=== PATIENT | female | born 1975 | race Two or more races ===

== ENCOUNTER 2020-08-20 15:36 | Outpatient (REF) | payer OTHER, SELFPAY ==
--- NOTE | ~2020-08-20 | MM_ITS ---
EXAMINATION: MM SCREENING DIGITAL BREAST TOMOSYNTHESIS, BILATERAL CLINICAL INFORMATION: Screening. Asymptomatic. The lifetime risk of breast cancer based on the Tyrer-Cuzick Model is 7%. COMPARISON: Mammography: 08/23/2018, 09/11/2016 TECHNIQUE: Digital mammography is performed in craniocaudal and mediolateral oblique views along with computer-aided detection (CAD). Digital breast tomosynthesis is performed in implant-displaced craniocaudal and implant-displaced mediolateral oblique views along with computer-aided detection (CAD). Synthesized 2D images are generated from the tomosynthesis. FINDINGS: The breasts are heterogeneously dense, which may obscure small masses (ACR BI-RADS breast composition Category c). There are no significant masses, abnormal calcifications, or other abnormalities. There are bilateral implants. Implant contours are similar to prior studies. There are no significant changes from prior exams. MM/MM tomosynthesis screen imp BI IMPRESSION: No mammographic evidence of malignancy. ASSESSMENT: BI-RADS 1: Negative RECOMMENDATION: Routine annual mammography screening. This patient's information was entered into a reminder system with a target due date for their next mammogram.
== END 2020-08-20 15:37 | disposition home or self-care (01) ==
LOC: HO.MAMMO 15:36
PROVIDERS: Visit Provider Internal Medicine
DX: Z12.31 Encounter for screening mammogram for malignant neoplasm of breast (principal)
CPT/HCPCS: 77063; 77067

== ENCOUNTER 2020-09-03 09:28 | Outpatient (REF) | payer OTHER, SELFPAY ==
[2020-09-04 15:32] LABS: C. trachomatis RNA TMA NOT DETECTED (NOT DETECTED); N. gonorrhoeae RNA TMA NOT DETECTED (NOT DETECTED)
== END 2020-09-03 09:29 | disposition home or self-care (01) ==
LOC: HO.LAB 09:28
PROVIDERS: PCP Internal Medicine; Visit Provider Advanced Practice Midwife
DX: Z01.419 Encounter for gynecological examination (general) (routine) without abnormal findings (principal); Z20.2 Contact with and (suspected) exposure to infections with a predominantly sexual mode of transmission
CPT/HCPCS: 36415; 87491; 87591

== ENCOUNTER 2021-07-23 21:51 | Emergency (ER) | payer OTHER, SELFPAY ==
[2021-07-23 21:52] VITALS: BP 147/66; PULSE 96; RESP 20; TEMP 36.1; O2SAT 100; BMI 26.4
--- NOTE | 2021-07-23 22:01 | ED_ITS ---
HPI - Allergic Reaction General Chief complaint: Allergic Reaction Stated complaint: allergic reaction Time Seen by Provider: 07/23/21 21:55 Source: patient Mode of arrival: ambulatory Limitations: no limitations History of Present Illness HPI narrative: 46-year-old female past medical history significant for anxiety presents to the emergency department with complaints of allergic reaction after using chapstick. Patient has been using the same chapstick for about 2 weeks, she has not had issues with this chapstick before. She reports a little bit of puffiness around the lips after using this chapstick. She also reports hives stopper and lower extremities and a few on her lower back. He tells me she has been having allergic reactions to multiple things lately, she is not sure exactly what she is allergic to, she was seen by an hydraulic punch press operator but she tells me that they did not do full panel testing on her. She does not report shortness of breath, difficulty breathing, she is controlling her secretions well. Upon arrival she appears nontoxic, no acute distress, speaking in full sentences. Denies chest pain, nausea, vomiting, abdominal pain, diarrhea, shortness of breath, fevers, chills. MD complaint: allergic reaction Onset (ago): hour(s) (1) Exposure: other (Chapstick) Symptoms: lip swelling Severity: mild Treatment prior to arrival: other (Loratadine and prednisone) Previous Allergic Reaction History: none Related Data Previous Rx's Medication Instructions Recorded alprazolam 0.25 mg tablet (Xanax) 0.25 mg PO DAILY PRN #6 tab 05/10/21 azithromycin 250 mg tablet See Rx Instructions PO .COMPLEX #6 05/17/21 tab diphenhydramine HCl 50 mg capsule 50 mg PO Q8H PRN #14 cap 07/23/21 epinephrine 0.3 mg/0.3 mL 0.3 mg (0.3 mL) IM Q4H PRN #2 ea 07/23/21 injection, auto-injector (EpiPen) prednisone 20 mg tablet 20 mg PO DAILY 5 Days #5 tab 07/23/21 Allergies Allergy/AdvReac Type Severity Reaction Status Date / Time polyethylene glycol 3350 Allergy Unknown HIVES Verified 05/17/21 10:12 [From MIRALAX] Review of Systems Review of Systems: Constitutional : No Weight loss, No Fever, No Chills, No Fatigue, No Malaise ENT/Mouth : No sore throat, No Rhinorrhea, + lip swelling Eyes: No Eye Pain, No Swelling, No Redness Cardiovascular : No Chest Pain, No SOB, No Dyspnea on Exertion, No Orthopnea, No Edema, No Palpitations Respiratory : No Cough, No Sputum, No Wheezing Gastrointestinal : No Nausea, No Vomiting, No Diarrhea, No Constipation, No abdominal Pain, No Hematochezia, No Melena Genitourinary : No Dysuria, No Urinary Frequency, No Hematuria, Musculoskeletal : No joint pain, No Myalgias, No Joint Swelling Skin : No Skin Lesions, + rash Neuro : No Weakness, No Numbness, No Dizziness, No Headache Psych : No Anxiety/Panic, No Depression All other systems reviewed and are negative Yes all other systems are reviewed and are negative [facility] Past Medical History Attestation statement: The following information was validated with the patient. Source: old records reviewed and nursing notes reviewed Medical History Anxiety Surgical History Hx of breast augmentation Hx of LASIK Hx of tonsillectomy Hx of wisdom tooth extraction Family History Family History Father Diabetes mellitus HTN (hypertension) High cholesterol Mother High cholesterol Maternal Grandmother Heart attack Paternal Grandmother Pneumonia Paternal Grandfather Diabetes mellitus Social History Social History Alcohol intake: current Alcohol intake frequency: holidays/special occasions only Patient Tobacco Use Status: Never used Tobacco Advance Directives: No Advance Directives Information Provided: Yes Gender identity: Female Physical Exam Vital Signs: Vital Signs: Last Vital Signs Temp 96.9 F 07/23/21 21:52 Pulse 96 07/23/21 21:52 Resp 20 07/23/21 21:52 BP 147/66 H 07/23/21 21:52 Pulse Ox 100 07/23/21 21:52 BMI result Body Mass Index 26.4 VSS Appearance: Alert.? Oriented X3.? No acute distress.? Patient speaking in full sentences, controlling secretions well, no acute distress. Head: Normocephalic, atraumatic, no step-offs or deformities Eyes: Pupils equal, round and reactive to light.? ENT: Pharynx normal.?Able to visualize posterior pharynx, no edema.+ mild swelling to upper and lower lips. Neck: Normal inspection.? Neck supple.? CVS: Normal heart rate and rhythm.? Pulses normal.? Respiratory: No respiratory distress.? Breath sounds normal.? Abdomen: Soft and nontender.? Skin: Skin warm and dry.? Normal skin color.? Normal skin turgor.?+ hives to upper and lower extremities and trunk. Extremities: 5/5 strength to bilateral upper and lower extremities Neuro: Oriented X 3.? No motor deficit.? No sensory deficit. Course Reevaluation(s) Reevaluation #1: Significant improvement after Benadryl administration. Patient's vital signs continued to be stable. Patient has no history of anaphylaxis. This appears to be a mild reaction. At this time I feel comfortable with discharge home. I will discharge her home with Benadryl, prednisone and and epi pen. I have educated her on proper use of EpiPen. She agrees and understands. I have answered all questions. I feel comfortable discharge home Time: 22:10 MDM - Allergic Reaction MDM Narrative Medical decision making narrative: 0 46 yo F pmhx anxiety presents to ED with mild lip swelling s/p using chapstick. Patient speaking in full sentences controlling secretions well. Vital signs are stable. Upon exam pharynx normal.?Able to visualize posterior pharynx, no edema. There is mild swelling to upper and lower lips. Patient controlling secretions well no acute distress. With stable vitals. Saturating 100% on room air. Plan at this time is to administer Benadryl.COVID test and monitor Medical Records Attestation: I reviewed the patient's medical records. Lab Data Attestation: I reviewed the patient's lab results. Critical Care Time Critical Care Time Critical Care Time: No Discharge Plan Discharge Clinical Impression: Allergic reaction Patient Disposition: Home, Self-Care Instructions: General Allergic Reaction (ED), Allergy Testing (ED) Additional Instructions: Take your medications as prescribed. If you were prescribed antibiotics today, it is important that you take your medication to their entirety, do not skip any doses, do not finish them early. Follow-up with your primary care provider this week. Please follow-up with an hydraulic punch press operator, I believe that you will likely require full panel allergy testing as this has been occurring frequently, unable to tell whether this is being caused by food, natural allergens or a specific product. I have sent an EpiPen for pharmacy and have instructed you on when you should use it, if you become short of breath or you feel like her throat is closing this is an appropriate time. If you use your EpiPen you must call 911 and be brought to the emergency department. Return to the emergency department with new or worsening symptoms. In case of emergency call 911 EROS: [facility] Office Address: [address] [place] [address] [address], [place], [address] Hope you feel better! Prescriptions: New diphenhydramine HCl 50 mg capsule 50 mg PO Q8H PRN (Reason: allergic reaction) Qty: 14 RF: 0 prednisone 20 mg tablet 20 mg PO DAILY 5 Days Qty: 5 RF: 0 epinephrine [EpiPen] 0.3 mg/0.3 mL auto-injector 0.3 mg IM Q4H PRN (Reason: anaphylaxis) Qty: 2 RF: 0 No Action alprazolam [Xanax] 0.25 mg tablet 0.25 mg PO DAILY PRN (Reason: anxiety) Qty: 6 RF: 0 azithromycin 250 mg tablet See Rx Instructions PO .COMPLEX Qty: 6 RF: 0 Referrals: Soila Ansari MD [Primary Care Provider] - 2 days Stand Alone Forms: Work/School Release
[2021-07-23] MEDS: diphenhydrAMINE HCL 25 MG TABLET 50 MG PO (22:30)
[2021-07-23 23:07] LABS: COVID-19 Test Negative (Negative)
== END 2021-07-23 23:12 | disposition home or self-care (01) ==
LOC: HO.ED 22:07
PROVIDERS: Physician Assistant; Emergency Provider Internal Medicine; PCP Internal Medicine
DX: L23.9 Allergic contact dermatitis, unspecified cause (principal); R22.0 Localized swelling, mass and lump, head; Z20.822 Contact with and (suspected) exposure to COVID-19; Z79.899 Other long term (current) drug therapy
CPT/HCPCS: 87635; 99283; Q0163

== ENCOUNTER 2021-09-09 08:39 | Outpatient (REF) | payer OTHER, SELFPAY ==
[2021-09-09 16:54] LABS: CT PCR NOT DETECTED (Not Detect.); NG PCR NOT DETECTED (Not Detect.)
[2021-09-11 21:07] LABS: HPV mRNA E6/E7 rflx Not Detected (Not Detected)
== END 2021-09-09 08:40 | disposition home or self-care (01) ==
LOC: HO.LAB 08:39
PROVIDERS: PCP Internal Medicine; Visit Provider Advanced Practice Midwife
DX: Z01.419 Encounter for gynecological examination (general) (routine) without abnormal findings (principal); Z11.51 Encounter for screening for human papillomavirus (HPV); Z20.2 Contact with and (suspected) exposure to infections with a predominantly sexual mode of transmission
CPT/HCPCS: 87491; 87591; 87624; 88142

== ENCOUNTER 2021-09-14 08:08 | Outpatient (REF) | payer OTHER, SELFPAY ==
--- NOTE | ~2021-09-14 | MM_ITS ---
EXAMINATION: MM SCREENING DIGITAL BREAST TOMOSYNTHESIS, BILATERAL CLINICAL INFORMATION: Screening. Asymptomatic. The lifetime risk of breast cancer based on the Tyrer-Cuzick Model is 7%. COMPARISON: Mammography: 08/20/2020, 08/23/2018, 3-17 TECHNIQUE: Digital mammography is performed in craniocaudal and mediolateral oblique views along with computer-aided detection (CAD). Digital breast tomosynthesis is performed in implant-displaced craniocaudal and implant-displaced mediolateral oblique views along with computer-aided detection (CAD). Synthesized 2D images are generated from the tomosynthesis. FINDINGS: The breasts are heterogeneously dense, which may obscure small masses (ACR BI-RADS breast composition Category c). There are no significant masses, abnormal calcifications, or other abnormalities. There is a fibronodular parenchymal pattern similar to prior studies. No developing density or architectural abnormality. The implant contours are smooth and similar to prior exams. There are no significant changes. MM/MM tomosynthesis screen imp BI IMPRESSION: No mammographic evidence of malignancy. ASSESSMENT: BI-RADS 1: Negative RECOMMENDATION: Routine annual mammography screening. This patient's information was entered into a reminder system with a target due date for their next mammogram.
== END 2021-09-14 08:09 | disposition home or self-care (01) ==
LOC: HO.MAMMO 08:08
PROVIDERS: PCP Internal Medicine; Visit Provider Internal Medicine
DX: Z12.31 Encounter for screening mammogram for malignant neoplasm of breast (principal)
CPT/HCPCS: 77063; 77067

== ENCOUNTER 2022-01-02 09:48 | Outpatient (REF) | payer OTHER, SELFPAY ==
[2022-01-02 11:04] LABS: MANUAL DIFF FLAG NO
[2022-01-02 11:16] LABS: Basophils Absolute Auto 0.1 X10*3/uL (0.0-0.2); Basophils Percent Auto 0.8 % (0-2); Eosinophils Absolute Auto 0.1 X10*3/uL (0.0-0.4); Eosinophils Percent Auto 1.4 % (0-4); Hematocrit 41.8 % (37.0-47.0); Hemoglobin 13.3 g/dl (12.0-16.0); Imm Gran Abs Auto 0.02 X10*3/uL (0.00-0.03); Imm Gran Pct Auto 0.3 % (0.0-0.4); Lymphocytes Absolute Auto 2.9 X10*3/uL (1.2-4.9); Lymphocytes Percent Auto 37.4 % (20-40); Mean Corpuscular HGB Conc 31.8 g/dl (31.0-35.0); Mean Corpuscular Hemoglobin 28.2 pg (27.0-33.0); Mean Corpuscular Volume 88.7 fL (80.0-98.0); Mean Platelet Volume 10.3 fL (9.4-12.3); Monocytes Absolute Auto 0.5 X10*3/uL (0.1-1.2); Neutrophils Absolute Auto 4.3 x10*3/uL (2.0-8.3); Neutrophils Percent Auto 54.1 % (45-73); Platelet Count 285 X10*3/uL (160-400); Red Blood Count 4.71 X10*6/uL (4.20-5.50); Red Cell Distribution Width 12.3 % (11.0-16.0); White Blood Count 7.9 X10*3/uL (4.8-10.8)
[2022-01-02 11:26] LABS: Alanine Aminotransferase 19 U/L (0-31); Albumin Level 4.5 g/dL (3.5-5.0); Alkaline Phosphatase 66 U/L (39-117); Anion Gap 12 (12-20); Aspartate Amino Transferase 19 U/L (5-31); Bilirubin Total 0.5 mg/dL (0.0-1.0); Blood Urea Nitrogen 16 mg/dL (9-16); Calcium 9.2 mg/dL (8.4-10.2); Carbon Dioxide 24 mmol/L (22-29); Chloride 107 mmol/L (96-108); Cholesterol 204 mg/dL; Estimated Glomerular Filt Rate > 60; Glucose Fasting 89 mg/dL (60-99); HDL Cholesterol 58 mg/dL; LDL Cholesterol Calculated 132 mg/dl; Potassium 4.6 mmol/L (3.3-5.1); Sodium 138 mmol/L (135-145); Total Protein 7.2 g/dL (6.5-8.0); Triglycerides 71 mg/dL
[2022-01-02 11:47] LABS: TSH reflex Free T4 0.89 uIU/mL (0.32-4.0)
[2022-01-07 13:27] LABS: Vitamin D 25-OH, D2 14 ng/mL; Vitamin D 25-OH, D3 12 ng/mL; Vitamin D 25-OH, Total 26 ng/mL (30-100)
== END 2022-01-02 09:49 | disposition home or self-care (01) ==
LOC: HO.HMGCLDS 09:48
PROVIDERS: PCP Internal Medicine; Visit Provider Internal Medicine
DX: Z00.01 Encounter for general adult medical examination with abnormal findings (principal); F33.9 Major depressive disorder, recurrent, unspecified; F41.1 Generalized anxiety disorder; K21.9 Gastro-esophageal reflux disease without esophagitis; D22.30 Melanocytic nevi of unspecified part of face
CPT/HCPCS: 36415; 80053; 80061; 82306; 84443; 85025

== ENCOUNTER 2022-09-15 08:46 | Outpatient (REF) | payer OTHER, SELFPAY ==
[2022-09-15 14:13] LABS: CT PCR NOT DETECTED (Not Detect.); NG PCR NOT DETECTED (Not Detect.)
== END 2022-09-15 08:47 | disposition home or self-care (01) ==
LOC: HO.LNP 08:46
PROVIDERS: PCP Internal Medicine; Visit Provider Advanced Practice Midwife
DX: Z01.419 Encounter for gynecological examination (general) (routine) without abnormal findings (principal); Z20.2 Contact with and (suspected) exposure to infections with a predominantly sexual mode of transmission
CPT/HCPCS: 0353U

== ENCOUNTER 2022-09-20 09:42 | Outpatient (REF) | payer OTHER, SELFPAY ==
--- NOTE | ~2022-09-20 | MM_ITS ---
EXAMINATION: MM SCREENING DIGITAL BREAST TOMOSYNTHESIS, BILATERAL CLINICAL INFORMATION: Screening. Asymptomatic. The lifetime risk of breast cancer based on the Tyrer-Cuzick Model is 8%. COMPARISON: Mammography: 09/14/2021, 08/20/2020, 08/23/2018 TECHNIQUE: Digital mammography is performed in craniocaudal and mediolateral oblique views along with computer-aided detection (CAD). Digital breast tomosynthesis is performed in implant-displaced craniocaudal and implant-displaced mediolateral oblique views along with computer-aided detection (CAD). Synthesized 2D images are generated from the tomosynthesis. FINDINGS: The breasts are heterogeneously dense, which may obscure small masses (ACR BI-RADS breast composition Category c). There are bilateral implants, contour is similar to previous studies. Fine fibronodular parenchymal pattern is similar to prior exams and there is no developing density or architectural abnormality. There are no significant masses, abnormal calcifications, or other abnormalities. The axilla are and skin contours are unremarkable. MM/MM tomosynthesis screen imp BI IMPRESSION: No mammographic evidence of malignancy. ASSESSMENT: BI-RADS 1: Negative RECOMMENDATION: Routine annual mammography screening. This patient's information was entered into a reminder system with a target due date for their next mammogram.
== END 2022-09-20 09:43 | disposition home or self-care (01) ==
LOC: HO.MAMMO 09:42
PROVIDERS: PCP Internal Medicine; Visit Provider Internal Medicine
DX: Z12.31 Encounter for screening mammogram for malignant neoplasm of breast (principal)
CPT/HCPCS: 77063; 77067

== ENCOUNTER → 2022-11-18 11:20 | Outpatient (BNVA) | payer OTHER, SELFPAY | PROVIDERS: PCP Internal Medicine; Visit Provider Advanced Practice Midwife | DX: N81.4 Uterovaginal prolapse, unspecified (principal) | CPT/HCPCS: 99212 ==

== ENCOUNTER 2023-01-27 07:52 | Outpatient (REF) | payer OTHER, SELFPAY ==
[2023-01-27 11:25] LABS: MANUAL DIFF FLAG NO
[2023-01-27 11:54] LABS: Basophils Percent Auto 0.5 % (0-2); Eosinophils Percent Auto 0.5 % (0-4); Hematocrit 43.5 % (37.0-47.0); Hemoglobin 13.7 g/dl (12.0-16.0); Imm Gran Abs Auto 0.01 X10*3/uL (0.00-0.03); Imm Gran Pct Auto 0.1 % (0.0-0.4); Lymphocytes Absolute Auto 2.5 X10*3/uL (1.2-4.9); Lymphocytes Percent Auto 33.6 % (20-40); Mean Corpuscular HGB Conc 31.5 g/dl (31.0-35.0); Mean Corpuscular Hemoglobin 27.9 pg (27.0-33.0); Mean Corpuscular Volume 88.6 fL (80.0-98.0); Mean Platelet Volume 10.8 fL (9.4-12.3); Monocytes Absolute Auto 0.4 X10*3/uL (0.1-1.2); Monocytes Percent Auto 5.6 % (2-11); Neutrophils Absolute Auto 4.5 x10*3/uL (2.0-8.3); Neutrophils Percent Auto 59.7 % (45-73); Platelet Count 302 X10*3/uL (160-400); Red Blood Count 4.91 X10*6/uL (4.20-5.50); Red Cell Distribution Width 12.7 % (11.0-16.0); White Blood Count 7.5 X10*3/uL (4.8-10.8)
[2023-01-27 12:29] LABS: Alanine Aminotransferase 17 U/L (0-31); Albumin Level 4.4 g/dL (3.5-5.0); Alkaline Phosphatase 63 U/L (39-117); Anion Gap 11 (12-20); Aspartate Amino Transferase 15 U/L (5-31); Bilirubin Total 0.5 mg/dL (0.0-1.0); Blood Urea Nitrogen 15 mg/dL (9-16); Calcium 9.6 mg/dL (8.4-10.2); Carbon Dioxide 24 mmol/L (22-29); Chloride 106 mmol/L (96-108); Cholesterol 191 mg/dL; Estimated Glomerular Filt Rate > 60; Glucose Fasting 92 mg/dL (60-99); HDL Cholesterol 49 mg/dL; LDL Cholesterol Calculated 128 mg/dl; Potassium 4.2 mmol/L (3.3-5.1); Sodium 137 mmol/L (135-145); TSH reflex Free T4 1.17 uIU/mL (0.32-4.0); Total Protein 7.2 g/dL (6.5-8.0); Triglycerides 73 mg/dL
[2023-02-01 16:42] LABS: Vitamin D 25-OH, D2 25 ng/mL; Vitamin D 25-OH, D3 9 ng/mL; Vitamin D 25-OH, Total 34 ng/mL (30-100)
== END 2023-01-27 07:53 | disposition home or self-care (01) ==
LOC: HO.HMGCLDS 07:52
PROVIDERS: PCP Internal Medicine; Visit Provider Internal Medicine
DX: Z00.01 Encounter for general adult medical examination with abnormal findings (principal); F41.1 Generalized anxiety disorder; T78.40XA Allergy, unspecified, initial encounter; E55.9 Vitamin D deficiency, unspecified
CPT/HCPCS: 36415; 80053; 80061; 82306; 84443; 85025

== ENCOUNTER 2023-09-23 09:13 | Outpatient (AMB) | payer OTHER, SELFPAY ==
--- NOTE | 2023-09-23 09:15 | AM.OFFWIN_ITS ---
Intake Vital Signs 09/23/23 09:17 Weight 157 lb BP 120/80 Blood Pressure Location Rt brachial Position Sitting Pulse 78 Pulse Source Pulse Oximeter Temp 97.9 F Temp Source Oral Pulse Oximetry (%) 98 Oxygen Delivery Method Room Air Intake Visit Reasons: EP Headache, sore throat (masked) Intake Note: Patient here for headache, sore throat and congestion which starterd three days ago. Patient Tobacco Use Status: Never used Tobacco Allergies polyethylene glycol 3350 [From MIRALAX] Allergy (Unknown, Verified 09/23/23 09:18) HIVES Do you need a note to return to daycare/school/sports/work: No HPI HPI Comments History of Present Illness Details 48 y/o female patient who presents to [facility] in clinic with c/o headache, sore-throat and chest/nasal congestion x 3 days now. Pt reports that symptoms started about 1 month ago, but got worse in the last 3 days. She has been taking Ibuprofen with good relief. Denies any recent sick contacts. Denies fevers, chills, nausea or vomiting. Reports good appetite. [facility] Medical History (Updated 01/07/23 @ 10:50 by Kunal Benson MD) Uterine prolapse Dysplasia of cervix, low grade (LULI 1) Depression with anxiety GERD (gastroesophageal reflux disease) Anxiety Surgical History Hx of cholecystectomy Hx of LASIK Hx of breast augmentation Hx of wisdom tooth extraction Hx of tonsillectomy Family History Father Diabetes mellitus HTN (hypertension) High cholesterol Esophageal cancer Mother High cholesterol Maternal Grandmother Heart attack Paternal Grandmother Pneumonia Paternal Grandfather Diabetes mellitus Social History Housing: House Alcohol intake: current Alcohol intake frequency: holidays/special occasions only Patient Tobacco Use Status: Never used Tobacco e-Cigarette/Vaping Use: Never Used service: No Current occupational status: employed Sexual orientation: Straight/Heterosexual Gender identity: Female Cognitive needs: No Hearing needs: No Vision needs: Yes Female Reproductive History Menstrual Age of Menarche: 13 Review of Systems Const All systems reviewed & are unremarkable except as noted in HPI and below Physical Exam Vital Signs: Last Vital Signs Temp 97.9 F 09/23/23 09:17 Pulse 78 09/23/23 09:17 BP 120/80 09/23/23 09:17 Pulse Ox 98 09/23/23 09:17 Oxygen Delivery Method Room Air 09/23/23 09:17 Const General: comfortable and no acute distress Orientation/consciousness: patient oriented x3 HEENT Head: Yes normocephalic Ears: external ears normal and TM abnormal with fluid behind the TM bilateral General nose exam: Abnormal mucous membranes and turbinates present boggy and erythematous Face and sinus: Yes sinuses nontender Mouth: moist mucous membranes Throat: Yes posterior oropharynx normal Resp Effort & Inspection: normal respiratory effort and able to speak in complete sentences Auscultation: clear to auscultation bilaterally, no crackles, no rales, no rhonchi and no wheezes Cardio Rate: regular rate Rhythm: regular rhythm Neuro General: patient oriented x3 Results AMB Rapid Strep AMB Rapid Strep Negative Last Edit by LA NENA Leahy on 09/23/23 09:28 Assessment & Plan Assessment & Plan (1) Acute pharyngitis: Code(s): J02.9 - Acute pharyngitis, unspecified Qualifiers: Pharyngitis/tonsillitis etiology: unspecified etiology Qualified Code(s): J02.9 - Acute pharyngitis, unspecified Plan: - OTC cold/sinus remedies - Acetaminophen for pain relief -SARs Orders: Orders AMB Rapid Strep Screen Today Z13.9 - Encounter for screening, unspecified SARS-CoV2/FLU/RSV Today J02.9 - Acute pharyngitis, unspecified Medications: New azithromycin 500 mg PO DAILY 3 days 3 tabs 0RF J02.9 - Acute pharyngitis, unspecified Coding Level of Care Code Est Pt Level 3 (20369) Diagnoses Acute pharyngitis, unspecified etiology J02.9 Pharyngitis/tonsillitis etiology: unspecified etiology Time Spent (min) 15
[2023-09-23 09:17] VITALS: BP 120/80; PULSE 78; TEMP 36.6; O2SAT 98
== END 2023-09-23 09:59 | disposition home or self-care (01) ==
PROVIDERS: PCP Internal Medicine; Visit Provider Nurse Practitioner Family
DX: J02.9 Acute pharyngitis, unspecified (principal)
CPT/HCPCS: 87880; 99213

== ENCOUNTER 2023-09-23 09:31 | Outpatient (REF) | payer OTHER, SELFPAY ==
[2023-09-23 13:04] LABS: Influenza A PCR NEGATIVE (Negative); Influenza B PCR NEGATIVE (Negative); Resp Syncy Virus RNA Qual PCR NEGATIVE (Negative); SARS COV2 PCR INHOUSE NEGATIVE (Negative)
== END 2023-09-23 09:32 | disposition home or self-care (01) ==
LOC: HO.LAB 09:31
PROVIDERS: Visit Provider Nurse Practitioner Family
DX: J02.9 Acute pharyngitis, unspecified (principal)
CPT/HCPCS: 0241U

== ENCOUNTER 2023-09-24 14:11 | Outpatient (REF) | payer OTHER, SELFPAY ==
[2023-09-24 18:33] LABS: CT PCR NOT DETECTED (Not Detect.); NG PCR NOT DETECTED (Not Detect.)
[2023-09-25 13:56] LABS: BV Int Neg Control Negative (Negative); BV Int Pos Control Positive (Positive)
[2023-10-03 09:18] LABS: HPV mRNA E6/E7 rflx Not Detected (Not Detected)
== END 2023-09-24 14:12 | disposition home or self-care (01) ==
LOC: HO.LNP 14:11
PROVIDERS: PCP Internal Medicine; Visit Provider Advanced Practice Midwife
DX: Z01.419 Encounter for gynecological examination (general) (routine) without abnormal findings (principal); Z11.51 Encounter for screening for human papillomavirus (HPV); N93.9 Abnormal uterine and vaginal bleeding, unspecified; Z20.2 Contact with and (suspected) exposure to infections with a predominantly sexual mode of transmission
CPT/HCPCS: 0353U; 81025; 87480; 87510; 87624; 87660; 88142

== ENCOUNTER 2023-09-24 14:11 | Outpatient (AMB) | payer OTHER, SELFPAY ==
--- NOTE | 2023-09-24 14:13 | MHC.OFFVIS ---
Intake Vital Signs 09/24/23 14:14 Height 5 ft 1 in Weight 156 lb BMI 29.5 BP 120/80 Intake Visit Reasons: CLINICAL PSYCHOLOGIST LICENSED annual exam Fixture Maker Required: No Information Interpreted: non-clinical & clinical Local Combination Truck Driver: Local Combination Truck Driver Present (Aidyn) Allergies polyethylene glycol 3350 [From MIRALAX] Allergy (Unknown, Verified 09/24/23 14:16) HIVES Is last menstrual period known: Yes Last menstrual period: 09/15/23 Post menopausal: No HPI HPI Comments History of Present Illness Details She is a premenopausal woman presenting for annual examination. Doing well with no concerns. Referred to uro Gyne last year due to incontinence and prolapse. She tries to eat healthy and stays active with exercise. Regular monthly menses, with spotting 1-1/2wk. after her menses. No pelvic pain. No PCB. Currently is sexually active. Using withdrawal, does not want control. She denies vaginal itching and irritation. STI screening offered; she accepts. Denies family history of breast, ovarian or colon cancer. Last pap smear , negative. Prior CINI. Mammogram: not UTD. COUNTS INCLUDE 234 BEDS AT THE [facility] Medical History Uterine prolapse Dysplasia of cervix, low grade (LULI 1) Depression with anxiety GERD (gastroesophageal reflux disease) Anxiety Surgical History Hx of cholecystectomy Hx of LASIK Hx of breast augmentation Hx of wisdom tooth extraction Hx of tonsillectomy Family History Father Diabetes mellitus HTN (hypertension) High cholesterol Esophageal cancer Mother High cholesterol Maternal Grandmother Heart attack Paternal Grandmother Pneumonia Paternal Grandfather Diabetes mellitus Social History Housing: House Alcohol intake: current Alcohol intake frequency: holidays/special occasions only Patient Tobacco Use Status: Never used Tobacco e-Cigarette/Vaping Use: Never Used service: No Current occupational status: employed Sexual orientation: Straight/Heterosexual Gender identity: Female Cognitive needs: No Hearing needs: No Vision needs: Yes Female Reproductive History Menstrual Age of Menarche: 13 Duration of menses: 3-5 days Date of last menstrual period: 09/15/23 control method: none Total pregnancies: 3 Full term: 2 Number of Living Children: 2 Ab spontaneous: 1 Date of last pap smear: 09/09/21 (negative) History of abnormal pap smear: Yes Date of Mammogram: 09/20/22 Review of Systems Const All systems reviewed & are unremarkable except as noted in HPI and below Reports as per HPI Eyes Reports no additional complaints ENT Reports no additional complaints Card Reports no additional complaints Resp Reports no additional complaints GI Reports as per HPI and Reports no additional complaints Reports as per HPI Musc Reports no additional complaints Skin/Breast Reports as per HPI Neuro Reports no additional complaints Psych Reports no additional complaints Endo Reports no additional complaints Vlad/Lymph Reports no additional complaints Aller/Immun Reports no additional complaints Physical Exam Vital Signs: Last Vital Signs BP 120/80 09/24/23 14:14 BMI result Body Mass Index 29.5 Const General: cooperative, healthy appearing, no acute distress, well developed and alert Orientation/consciousness: patient oriented x3 HEENT Head: Yes normal to inspection Eyes General: appearance normal, both eyes and all related structures Neck Neck: Yes normal visual inspection Thyroid: Thyroid normal Chest Other: Bilateral augmentation with scar Chest palpation & inspection: normal inspection of the chest and other (no puckering, dimpling, peau de orange, retraction, discharge, masses) Breast/axilla inspection: normal inspection of the breasts Breast/axilla palpation: normal palpation of the breasts Resp Effort & Inspection: normal respiratory effort GI Inspection: Yes normal to inspection Palpation (GI): Soft to palpation Rectal Exam - Female: deferred General: Yes bladder normal to palpation External Female Exam: normal external appearance and normal appearance of the urethra Speculum Exam - Vagina: normal appearance of the vagina, normal palpation and normal vaginal discharge Speculum Exam - Cervix: normal appearance of the cervix, normal palpation, Nabothian cyst present (Multiple) and Other cervical findings present (Bled with Pap) Bimanual exam- vagina & uterus: normal bimanual exam, normal palpation, uterine size normal, bladder normal to palpation, normal palpation and non-tender Bimanual Exam- Adnexa, other: no masses Skin General skin exam: no rashes or lesions noted Rashes: no rashes Neuro General: patient oriented x3 Cognition (Neuro): normal cognition Extrem General: Yes normal to inspection Psych Attitude: cooperative Thought process: Normal thought process present Results AMB Test Urine AMB Test Urine Negative Last Edit by SANTA Parish on 09/24/23 15:21 Results Reviewed Results Reviewed: Laboratory Last Values Tst Clinic Negative 09/24/23 15:15 Assessment & Plan Assessment & Plan (1) Encounter for well woman exam with routine gynecological exam: Code(s): Z01.419 - Encounter for gynecological examination (general) (routine) without abnormal findings Plan Discussed: Current recommendations for pap smears per ASCCP guidelines. Breast awareness and periodic breast exams. Maintain a healthy lifestyle including a well balanced diet and routine exercise. Use condoms for prevention or other form of control. Mammogram yearly. AUB workup: Pap, cultures, ultrasound and EMB. Counseled regarding eating and drinking and taking 3 Advil prior to her EMB 1 hour before the procedure. Patient verbalizes understanding and agrees to the plan of care. She was given opportunity to ask questions and all questions were answered to the best of my ability. RTO in one year for annual dental assistant examination. This note is constructed using voice recognition software. While every effort has been made to ensure accuracy, building tech errors may have been included. Orders: Orders MM tomosynthesis screening BI Today Z12.31 - Encounter for screening mammogram for malignant neoplasm of breast US pelvic and transvaginal Today N93.9 - Abnormal uterine and vaginal bleeding, unspecified CT NG by PCR Today N93.9 - Abnormal uterine and vaginal bleeding, unspecified Pap Smear Today N93.9 - Abnormal uterine and vaginal bleeding, unspecified AMB HCG Urine Test Today Z32.02 - Encounter for test, result negative Bacterial Vaginosis Panel Today N93.9 - Abnormal uterine and vaginal bleeding, unspecified Coding Level of Care Code Est Pt Prev Care 40-64y(31688) Diagnoses Encounter for well woman exam with routine gynecological exam Z01.419
[2023-09-24 14:14] VITALS: BP 120/80; BMI 29.5
== END 2023-09-24 15:15 | disposition home or self-care (01) ==
PROVIDERS: PCP Internal Medicine; Visit Provider Advanced Practice Midwife
DX: Z01.419 Encounter for gynecological examination (general) (routine) without abnormal findings (principal); Z32.02 Encounter for pregnancy test, result negative
CPT/HCPCS: 99396

== ENCOUNTER 2023-10-29 15:37 | Outpatient (REF) | payer OTHER, SELFPAY ==
--- NOTE | ~2023-10-29 | US_ITS ---
EXAMINATION: US PELVIS CLINICAL INFORMATION: Abnormal uterine, vaginal bleeding, last menstrual period 3 weeks ago. COMPARISON: None available. TECHNIQUE: Ultrasound of the pelvis is performed using both transabdominal and transvaginal transducers along with Doppler. Transvaginal imaging is performed due to inadequate visualization transabdominally. FINDINGS: The uterus is retropositioned and measures 10.8 x 3.7 x 5.0 cm. No discrete fibroids appreciated. No significant free fluid. Right ovary measures 3.5 x 2.2 x 1.9 cm, volume 7.7 mL. Left ovary measures 3.6 x 1.9 x 2.4 cm, volume 8.6 mL. A 1.9 x 1.4 x 1.8 cm exophytic left ovarian cyst appears simple and is likely physiologic. There is no indication for additional imaging at this time. Endometrial thickness is 10 mm. Endometrium appears heterogeneous and complex with 4 x 2 x 2 mm cystic space as well as multiple additional cystic spaces. Vascularity identified within the endometrium. Appearance is concerning for possible endometrial polyps or other lesion. Gynecologic consultation and possible biopsy recommended for further evaluation. US/US pelvic and transvaginal IMPRESSION: Endometrial thickness is 10 mm. Complex endometrium with multiple cystic spaces and vascularity, concerning for possible endometrial polyps or other lesion. Gynecologic consultation and possible biopsy recommended for further evaluation. This study was presented today November 02, 2023 for interpretation. PSA staff will provide results to referring provider at this time.
== END 2023-10-29 15:38 | disposition home or self-care (01) ==
LOC: HO.US 15:37
PROVIDERS: PCP Internal Medicine; Visit Provider Advanced Practice Midwife
DX: N93.9 Abnormal uterine and vaginal bleeding, unspecified (principal)
CPT/HCPCS: 76830; 76856

== ENCOUNTER 2024-04-08 09:47 | Outpatient (AMB) | payer OTHER, SELFPAY ==
--- NOTE | 2024-04-08 09:50 | A.OFFPC_ITS ---
Vital Signs 3 04/08/24 09:51 Height 5 ft 1 in Weight 157 lb 8 oz BMI 29.8 BP 128/84 Blood Pressure Location Rt brachial Position Sitting Pulse 75 Pulse Source Pulse Oximeter Pulse Oximetry (%) 100 Oxygen Delivery Method Room Air Intake Visit Reasons: annual pe Allergies polyethylene glycol 3350 [From MIRALAX] Allergy (Unknown, Verified 04/08/24 09:51) HIVES Medication List - Last Reconciled 04/08/24 by Kunal Benson MD epinephrine (EpiPen) 0.3 mg (0.3 mL) IM Q4H PRN Tobacco use date assessed: 04/08/24 Dental Screening Dental Screen Date: 04/08/24 Did you have a dental visit in the last 12 months?: Yes Did you have a dental problem in the last 6 months where you did not have access to dental care?: No Was dental information given to patient?: Patient has dentist HPI annual pe 2 HPI0 Details Patient is a 48-year-old female came in today for physical exam She lost her father 6 months ago patient is feeling very depressed and anxious Like to start therapy, message sent to our behavior health coordinator I am starting her on escitalopram 5 mg, patient is allergic to ethylene glycol so I have sent a liquid form We will set up a telemedicine visit in 2 weeks to see how she is doing Also due for colonoscopy Due for mammogram Due for OBGYN visit, patient will give them a call Lab order placed to be done fasting [facility] Medical History Uterine prolapse Dysplasia of cervix, low grade (LULI 1) Depression with anxiety GERD (gastroesophageal reflux disease) Anxiety Surgical History Hx of cholecystectomy Hx of LASIK Hx of breast augmentation Hx of wisdom tooth extraction Hx of tonsillectomy Family History Father Diabetes mellitus HTN (hypertension) High cholesterol Esophageal cancer Mother High cholesterol Maternal Grandmother Heart attack Paternal Grandmother Pneumonia Paternal Grandfather Diabetes mellitus Social History Housing: House Alcohol intake: current Alcohol intake frequency: holidays/special occasions only Patient Tobacco Use Status: Never used Tobacco e-Cigarette/Vaping Use: Never Used service: No Current occupational status: employed Sexual orientation: Straight/Heterosexual Gender identity: Female Cognitive needs: No Hearing needs: No Vision needs: Yes Female Reproductive History Menstrual Age of Menarche: 13 Questionnaire PHQ-9 Over the last 2 weeks, how often have you been bothered by any of the following problems? 1. Little interest or pleasure in doing things: several days 2. Feeling down, depressed, or hopeless: several days 3. Trouble falling or staying asleep, or sleeping too much: several days 4. Feeling tired or having little energy: several days 5. Poor appetite or overeating: several days 6. Feeling bad about yourself - or that you are a failure or have let yourself or your family down: not at all 7. Trouble concentrating on things, such as reading the newspaper or watching television: not at all 8. Moving or speaking so slowly that other people could have noticed. Or the opposite - being so fidgety or restless that you have been moving around a lot more than usual: not at all 9. Thoughts that you would be better off or of hurting yourself in some way: not at all Total score: 5 Depression Screening Interpretation: Negative Depression Screening Done: Yes 75250 - PHQ-9 Billing: Yes Source: Developed by Drs. Slim Forbes, Calista Blake, Ji Chong and colleagues, with an educational vanessa from [employer]. Thrive Questionnaire Date Thrive assessed: 04/08/24 I am a: Patient What is your living situation today?: I have a steady place to live Within the past 12 months, did the food you bought not last and you didn't have the money to get more?: Never true Within the past 12 months, did you worry whether your food would run out before you got money to buy more?: Never true Do you have trouble paying for medicines?: No Do you have trouble getting transportation to medical appointments?: No Do you have trouble paying your heating and electricity bill?: No Do you have trouble taking care of your child, family member or friend?: No Do you have trouble with day-to-day activities such as bathing, preparing meals, shopping, managing finances, etc.?: No Are you currently unemployed and looking for a job?: No Are you interested in more education?: No Please select the resources that you would like help with: None Currently or been in a relationship where the following occur: No concerns reported THRIVE Score: 0 AUDIT C Alcohol Use Questionnaire (AUDIT-C) 1. How often do you have a drink containing alcohol?: Monthly or less 2. How many drinks containing alcohol do you have on a typical day when you are drinking?: 1 or 2 3. How often do you have six or more drinks on one occasion?: Never Total Score: 1 Score Reviewed/Action Taken: Yes MYESHA-7 AMB Questionnaire MYESHA-7 Date MYESHA - 7 assessed: 04/08/24 Feeling nervous, anxious, or on edge: 1 = Several days Not being able to stop or control worryin = Several days Worrying too much about different things: 0 = Not at all Trouble relaxin = Not at all Being so restless that it is hard to sit still: 0 = Not at all Becoming easily annoyed or irritable: 0 = Not at all Feeling afraid as if something awful might happen: 0 = Not at all Total MYESHA-7 score (0-4 normal; 5-9 mild; 10-14 moderate; 15-21 severe): 2 Source: Developed by Drs. Slim Forbes, Calista Blake, Ji Chong and colleagues, with an educational vanessa from [employer]. MYESHA-7 Assessment Billing MYESHA-7 Assessment Tool: MYESHA-7 Assessment 20986 Review of Systems Const Denies chills, Denies fever(s) and Denies headache(s) Eyes Denies blurry vision ENT Denies headache(s), Denies nasal discharge, Denies nasal obstruction, Denies odynophagia and Denies sinus pain Card Denies chest pain at rest and Denies chest pain with activity Resp Denies cough and Denies hemoptysis GI Denies diarrhea, Denies odynophagia, Denies vomiting and Denies hematemesis Reports as per HPI Musc Denies abnormal gait Skin/Breast Reports as per HPI Neuro Denies Neuro-related abnormal movements, Denies Abnormal speech present, Denies abnormal gait, Denies headache(s) and Denies Sensory deficit (Neuro) Psych Denies mood swings and Denies paranoia Endo Reports as per HPI Vlad/Lymph Reports as per HPI Aller/Immun Reports as per HPI Physical exam (Primary Care) Vital Signs: Last Vital Signs Pulse 75 04/08/24 09:51 BP 128/84 04/08/24 09:51 Pulse Ox 100 04/08/24 09:51 Oxygen Delivery Method Room Air 04/08/24 09:51 BMI result Body Mass Index 29.8 Tobacco/Smoking Status: Tobacco use Status Tobacco use date assessed 04/08/24 04/08/24 09:54 Patient Tobacco Use Status Never used Tobacco 04/08/24 09:54 e-Cigarette/Vaping Use Never Used 04/08/24 09:54 PHQ-9: PHQ-9 Score PHQ-9: Total score 5 04/08/24 10:29 Depression Screening Interpretation: Negative Thrive Assessment: Date of Thrive Assessment Date Thrive assessed 04/08/24 04/08/24 09:54 Currently or been in a relationship where the following occur: No concerns reported Const General: cooperative, comfortable and no acute distress Orientation/consciousness: patient oriented x3 HENMT Head: Yes normocephalic and Yes atraumatic Face images: 2 1. Changing mole Eyes General: appearance normal, both eyes and all related structures Pupils: Equal, round and reactive pupils present EOM: EOMs intact bilaterally Neck Neck: Yes supple and No lymphadenopathy Thyroid: Thyroid normal Lymphatic: no lymphadenopathy noted Chest Breast/axilla palpation: normal palpation of the breasts Resp Effort & Inspection: normal respiratory effort and able to speak in complete sentences Auscultation: clear to auscultation bilaterally Cardio Heart sounds: S1 normal heart sound present and S2 normal heart sound present GI Palpation (GI): Soft to palpation and nontender Auscultation: normal bowel sounds General: Yes no CVA tenderness Back/Spine/Pelvis Back: no CVA tenderness Skin General skin exam: elasticity normal and turgor normal Neuro General: patient oriented x3 and gait normal Cranial nerves: Yes Equal, round and reactive pupils present Speech: No Abnormal speech present Sensory Exam: No Sensory deficit (Neuro) Coordination: tandem gait normal and Romberg test negative Extrem General: Yes normal exam except as noted and No edema Assessment and Plan Assessment & Plan (1) Encounter for general adult medical examination with abnormal findings: Code(s): Z00.01 - Encounter for general adult medical examination with abnormal findings (2) Major depression, recurrent: Code(s): F33.9 - Major depressive disorder, recurrent, unspecified Qualifiers: Active/Remission status: currently active Major depression episode severity: moderate Qualified Code(s): F33.1 - Major depressive disorder, recurrent, moderate (3) Anxiety, generalized: Code(s): F41.1 - Generalized anxiety disorder (4) Vitamin D deficiency: Code(s): E55.9 - Vitamin D deficiency, unspecified (5) Change in mole: Code(s): D22.9 - Melanocytic nevi, unspecified Plan Patient is a 48-year-old female came in today for physical exam She lost her father 6 months ago patient is feeling very depressed and anxious Like to start therapy, message sent to our behavior health coordinator I am starting her on escitalopram 5 mg, patient is allergic to ethylene glycol so I have sent a liquid form We will set up a telemedicine visit in 2 weeks to see how she is doing Also due for colonoscopy Due for mammogram Due for OBGYN visit, patient will give them a call Lab order placed to be done fasting Orders: Orders 2 TSH reflex Free T4 Today D22.9 - Melanocytic nevi, unspecified, E55.9 - Vitamin D deficiency, unspecified, F33.9 - Major depressive disorder, recurrent, unspecified, F41.1 - Generalized anxiety disorder, Z00.01 - Encounter for general adult medical examination with abnormal findings MM tomosynthesis screening BI Today Z12.31 - Encounter for screening mammogram for malignant neoplasm of breast Complete Blood Count Auto Diff Today D22.9 - Melanocytic nevi, unspecified, E55.9 - Vitamin D deficiency, unspecified, F33.9 - Major depressive disorder, recurrent, unspecified, F41.1 - Generalized anxiety disorder, Z00.01 - Encounter for general adult medical examination with abnormal findings Comprehensive [place]. Panel Fast Today D22.9 - Melanocytic nevi, unspecified, E55.9 - Vitamin D deficiency, unspecified, F33.9 - Major depressive disorder, recurrent, unspecified, F41.1 - Generalized anxiety disorder, Z00.01 - Encounter for general adult medical examination with abnormal findings Lipid Panel Today D22.9 - Melanocytic nevi, unspecified, E55.9 - Vitamin D deficiency, unspecified, F33.9 - Major depressive disorder, recurrent, unspecified, F41.1 - Generalized anxiety disorder, Z00.01 - Encounter for general adult medical examination with abnormal findings Vitamin D 25-OH (D2 and D3) Today D22.9 - Melanocytic nevi, unspecified, E55.9 - Vitamin D deficiency, unspecified, F33.9 - Major depressive disorder, recurrent, unspecified, F41.1 - Generalized anxiety disorder, Z00.01 - Encounter for general adult medical examination with abnormal findings Vitamin B12 Today D22.9 - Melanocytic nevi, unspecified, E55.9 - Vitamin D deficiency, unspecified, F33.9 - Major depressive disorder, recurrent, unspecified, F41.1 - Generalized anxiety disorder, Z00.01 - Encounter for general adult medical examination with abnormal findings Referrals 2 Open Access Screening Colonoscopy Referral Z12.11 - Encounter for screening for malignant neoplasm of colon, Z12.12 - Encounter for screening for malignant neoplasm of rectum Dermatology Referral D22.9 - Melanocytic nevi, unspecified Medications: New 2 escitalopram oxalate Take 1 tsp daily 5 mg (5 mL) PO DAILY 150 mL 0RF 30 days Coding Level of Care Code Est Pt Level 4 (90157) Est Pt Prev Care 40-64y(80738) Diagnoses Encounter for general adult medical examination with abnormal findings Z00.01 Moderate episode of recurrent major depressive disorder F33.1 Active/Remission status: currently active Major depression episode severity: moderate Anxiety, generalized F41.1 Vitamin D deficiency E55.9 Change in mole D22.9 Additional Codes MYESHA-7 Assessment Billing - MYESHA-7 Assessment Tool: MYESHA-7 Assessment 11951 ([id number])
[2024-04-08 09:51] VITALS: BP 128/84; PULSE 75; O2SAT 100; BMI 29.8
== END 2024-04-08 10:27 | disposition home or self-care (01) ==
PROVIDERS: PCP Internal Medicine; Visit Provider Internal Medicine
DX: Z00.00 Encounter for general adult medical examination without abnormal findings (principal); F33.1 Major depressive disorder, recurrent, moderate; F41.1 Generalized anxiety disorder; E55.9 Vitamin D deficiency, unspecified; D22.9 Melanocytic nevi, unspecified

== ENCOUNTER → 2024-04-08 09:47 | Outpatient (BNVA) | payer OTHER, SELFPAY | PROVIDERS: PCP Internal Medicine; Visit Provider Internal Medicine | DX: Z00.01 Encounter for general adult medical examination with abnormal findings (principal); D22.9 Melanocytic nevi, unspecified; F33.1 Major depressive disorder, recurrent, moderate; F41.1 Generalized anxiety disorder; E55.9 Vitamin D deficiency, unspecified | CPT/HCPCS: 96127 ==

== ENCOUNTER 2024-04-15 07:36 | Outpatient (REF) | payer OTHER, SELFPAY ==
[2024-04-15 07:44] LABS: MANUAL DIFF FLAG NO
[2024-04-15 08:11] LABS: Basophils Percent Auto 0.5 % (0-2); Eosinophils Absolute Auto 0.1 X10*3/uL (0.0-0.4); Eosinophils Percent Auto 0.6 % (0-4); Hematocrit 41.1 % (37.0-47.0); Hemoglobin 13.4 g/dl (12.0-16.0); Imm Gran Abs Auto 0.02 X10*3/uL (0.00-0.03); Imm Gran Pct Auto 0.3 % (0.0-0.4); Lymphocytes Absolute Auto 2.8 X10*3/uL (1.2-4.9); Lymphocytes Percent Auto 35.2 % (20-40); Mean Corpuscular HGB Conc 32.6 g/dl (31.0-35.0); Mean Corpuscular Hemoglobin 28.7 pg (27.0-33.0); Monocytes Absolute Auto 0.4 X10*3/uL (0.1-1.2); Monocytes Percent Auto 5.4 % (2-11); Neutrophils Absolute Auto 4.6 x10*3/uL (2.0-8.3); Platelet Count 298 X10*3/uL (160-400); Red Blood Count 4.67 X10*6/uL (4.20-5.50)
[2024-04-15 08:52] LABS: Alanine Aminotransferase 25 U/L (0-31); Albumin Level 4.5 g/dL (3.5-5.0); Alkaline Phosphatase 64 U/L (39-117); Anion Gap 10 (12-20); Aspartate Amino Transferase 18 U/L (5-31); Bilirubin Total 0.5 mg/dL (0.0-1.0); Blood Urea Nitrogen 14 mg/dL (9-16); Calcium 9.7 mg/dL (8.4-10.2); Carbon Dioxide 25 mmol/L (22-29); Chloride 109 mmol/L (96-108); Cholesterol 198 mg/dL (<200); Estimated Glomerular Filt Rate > 60; Glucose Fasting 98 mg/dL (60-99); HDL Cholesterol 57 mg/dL (>40); LDL Cholesterol Calculated 128 mg/dL (<100); Sodium 140 mmol/L (135-145); Total Protein 7.5 g/dL (6.5-8.0); Triglycerides 65 mg/dL (<150)
[2024-04-15 08:56] LABS: TSH reflex Free T4 0.88 uIU/mL (0.32-4.0)
[2024-04-15 09:03] LABS: Vitamin B12 347 pg/mL (200-900)
[2024-04-21 15:13] LABS: Vitamin D 25-OH, D2 6 ng/mL; Vitamin D 25-OH, D3 20 ng/mL; Vitamin D 25-OH, Total 26 ng/mL (30-100)
== END 2024-04-15 07:37 | disposition home or self-care (01) ==
LOC: HO.LAB 07:36
PROVIDERS: PCP Internal Medicine; Visit Provider Internal Medicine
DX: Z00.01 Encounter for general adult medical examination with abnormal findings (principal); F33.9 Major depressive disorder, recurrent, unspecified; F41.1 Generalized anxiety disorder; E55.9 Vitamin D deficiency, unspecified; D22.9 Melanocytic nevi, unspecified
CPT/HCPCS: 36415; 80053; 80061; 82306; 82607; 84443; 85025

== ENCOUNTER 2024-05-06 08:52 | Outpatient (AMB) | payer OTHER, SELFPAY ==
--- NOTE | 2024-05-06 08:55 | MHC.OFFVIS ---
Vital Signs 05/06/24 09:05 BP 126/78 Intake Visit Reasons: Ultra sound follow up Senior Applications Developer: Senior Applications Developer Present Allergies polyethylene glycol 3350 [From MIRALAX] Allergy (Unknown, Verified 05/06/24 09:05) HIVES Is last menstrual period known: Yes Last menstrual period: 04/29/24 HPI Comments Details: Patient is here today for a follow up pelvic ultrasound results, history of abnormal uterine bleeding earlier this year, she reports the bleeding is back to normal. She denies any pelvic pain. PFSH Medical History Uterine prolapse Dysplasia of cervix, low grade (LULI 1) Depression with anxiety GERD (gastroesophageal reflux disease) Anxiety Surgical History Hx of cholecystectomy Hx of LASIK Hx of breast augmentation Hx of wisdom tooth extraction Hx of tonsillectomy Family History Father Diabetes mellitus HTN (hypertension) High cholesterol Esophageal cancer Mother High cholesterol Maternal Grandmother Heart attack Paternal Grandmother Pneumonia Paternal Grandfather Diabetes mellitus Social History Housing: House Alcohol intake: current Alcohol intake frequency: holidays/special occasions only Patient Tobacco Use Status: Never used Tobacco e-Cigarette/Vaping Use: Never Used service: No Current occupational status: employed Sexual orientation: Straight/Heterosexual Gender identity: Female Cognitive needs: No Hearing needs: No Vision needs: Yes Female Reproductive History Menstrual Age of Menarche: 13 Date of last menstrual period: 04/29/24 Review of Systems Const All systems reviewed & are unremarkable except as noted in HPI and below Endo Reports no additional complaints Physical Exam Vital Signs: Last Vital Signs BP 126/78 05/06/24 09:05 Const General: cooperative, healthy appearing and no acute distress Psych Appearance: well kempt Attitude: cooperative Thought process: Normal thought process present Results Reviewed Results Reviewed: [address] [address] Ultrasound Report Signed Patient: Tyesha Moya MR#: [id number] : 1975 Acct:[id number] Age/Sex: 48 / F ADM Date: 10/29/23 Loc: HO.US Attending Dr: Hayde Sanders CNM Ordering Physician: Hayde Sanders CNM Date of Service: 10/29/23 Procedure(s): US pelvic and transvaginal Accession Number(s): [id number] cc: Kunal Benson MD; Hayde Sanders CNM~ EXAMINATION: US PELVIS CLINICAL INFORMATION: Abnormal uterine, vaginal bleeding, last menstrual period 3 weeks ago. COMPARISON: None available. TECHNIQUE: Ultrasound of the pelvis is performed using both transabdominal and transvaginal transducers along with Doppler. Transvaginal imaging is performed due to inadequate visualization transabdominally. FINDINGS: The uterus is retropositioned and measures 10.8 x 3.7 x 5.0 cm. No discrete fibroids appreciated. No significant free fluid. Right ovary measures 3.5 x 2.2 x 1.9 cm, volume 7.7 mL. Left ovary measures 3.6 x 1.9 x 2.4 cm, volume 8.6 mL. A 1.9 x 1.4 x 1.8 cm exophytic left ovarian cyst appears simple and is likely physiologic. There is no indication for additional imaging at this time. Endometrial thickness is 10 mm. Endometrium appears heterogeneous and complex with 4 x 2 x 2 mm cystic space as well as multiple additional cystic spaces. Vascularity identified within the endometrium. Appearance is concerning for possible endometrial polyps or other lesion. Gynecologic consultation and possible biopsy recommended for further evaluation. US/US pelvic and transvaginal IMPRESSION: Endometrial thickness is 10 mm. Complex endometrium with multiple cystic spaces and vascularity, concerning for possible endometrial polyps or other lesion. Gynecologic consultation and possible biopsy recommended for further evaluation. This study was presented today November 02, 2023 for interpretation. PSA staff will provide results to referring provider at this time. Dictated By: Melida Tanner MD Signed By: <Electronically signed by Melida Tanner MD in OV> 11/02/23 1143 DD/ 1626 TD/TT: Television Program Director: Assessment & Plan Assessment & Plan (1) Abnormal finding on ultrasound: Code(s): R93.89 - Abnormal findings on diagnostic imaging of other specified body structures (2) Abnormal uterine bleeding: Code(s): N93.9 - Abnormal uterine and vaginal bleeding, unspecified (3) Encounter to discuss test results: Code(s): Z71.2 - Person consulting for explanation of examination or test findings Plan Discussed: Ultrasound findings Left ovary measures 3.6 x 1.9 x 2.4 cm, volume 8.6 mL. A 1.9 x 1.4 x 1.8 cm exophytic left ovarian cyst appears simple and is likely physiologic. There is no indication for additional imaging at this time. Endometrial thickness is 10 mm. Endometrium appears heterogeneous and complex with 4 x 2 x 2 mm cystic space as well as multiple additional cystic spaces. Vascularity identified Indicative of possible endometrial polyps, recommendations are to have a hysteroscopy for further evaluation and diagnosis. Appointment to be scheduled a hysteroscopy consult with Dr. Miranda. Reviewed endometrial polyps with the use of visual charts and discuss preprocedure planning. All of her questions and concerns were addressed to the best of my ability and shared decision making. She is agreeable to the plan of care. This note is constructed using voice recognition software. While every effort has been made to ensure accuracy, marketing programs specialist errors may have been included. Coding Level of Care Code Est Pt Level 3 (62124) Diagnoses Abnormal finding on ultrasound R93.89 Abnormal uterine bleeding N93.9 Encounter to discuss test results Z71.2
[2024-05-06 09:05] VITALS: BP 126/78
== END 2024-05-06 09:38 | disposition home or self-care (01) ==
PROVIDERS: PCP Internal Medicine; Visit Provider Advanced Practice Midwife
DX: R93.89 Abnormal findings on diagnostic imaging of other specified body structures (principal); N93.9 Abnormal uterine and vaginal bleeding, unspecified; Z71.2 Person consulting for explanation of examination or test findings
CPT/HCPCS: 99213

== ENCOUNTER → 2024-05-06 08:52 | Outpatient (BNVA) | payer OTHER, SELFPAY | PROVIDERS: PCP Internal Medicine; Visit Provider Advanced Practice Midwife ==

== ENCOUNTER 2024-06-13 12:06 | Outpatient (AMB) | payer OTHER, SELFPAY ==
--- NOTE | 2024-06-13 12:10 | MHC.OFFVIS ---
Vital Signs 06/13/24 12:13 BP 130/82 Intake Visit Reasons: hysteroscopy Consult Physicians And Surgeons: Physicians And Surgeons Present ([place]) Accompanied by: Self / Same As Patient Allergies polyethylene glycol 3350 [From MIRALAX] Allergy (Unknown, Verified 06/13/24 12:13) HIVES Is last menstrual period known: Yes Last menstrual period: 05/10/20 Post menopausal: No Patient : No Do you need a note to return to daycare/school/sports/work: Yes (for surgery on thursday) HPI Comments Details: Presenting referred from Hayde Sanders CNM regarding abnormal uterine bleeding and abnormal pelvic ultrasound. Pelvic ultrasound done in 10/30 showed the following: The uterus is retropositioned and measures 10.8 x 3.7 x 5.0 cm. No discrete fibroids appreciated. No significant free fluid. Right ovary measures 3.5 x 2.2 x 1.9 cm, volume 7.7 mL. Left ovary measures 3.6 x 1.9 x 2.4 cm, volume 8.6 mL. A 1.9 x 1.4 x 1.8 cm exophytic left ovarian cyst appears simple and is likely physiologic. There is no indication for additional imaging at this time. Endometrial thickness is 10 mm. Endometrium appears heterogeneous and complex with 4 x 2 x 2 mm cystic space as well as multiple additional cystic spaces. Vascularity identified within the endometrium. Appearance is concerning for possible endometrial polyps or other lesion. Gynecologic consultation and possible biopsy recommended for further evaluation. The following workup was done.: H&H= within normal TSH within normal GC and chlamydia were negative. Co testing was done in 10/03 was negative. Mammogram was done in 10/02 was BI-RADS 1. [facility] Medical History Uterine prolapse Dysplasia of cervix, low grade (LULI 1) Depression with anxiety GERD (gastroesophageal reflux disease) Anxiety Surgical History Hx of cholecystectomy Hx of LASIK Hx of breast augmentation Hx of wisdom tooth extraction Hx of tonsillectomy Family History Father Diabetes mellitus HTN (hypertension) High cholesterol Esophageal cancer Mother High cholesterol Maternal Grandmother Heart attack Paternal Grandmother Pneumonia Paternal Grandfather Diabetes mellitus Social History Housing: House Alcohol intake: current Alcohol intake frequency: holidays/special occasions only Patient Tobacco Use Status: Never used Tobacco e-Cigarette/Vaping Use: Never Used service: No Current occupational status: employed Sexual orientation: Straight/Heterosexual Gender identity: Female Cognitive needs: No Hearing needs: No Vision needs: Yes Female Reproductive History Menstrual Age of Menarche: 13 Date of last menstrual period: 05/10/20 Total pregnancies: 2 Full term: 2 Review of Systems Card Reports as per HPI and Reports no additional complaints Resp Reports as per HPI and Reports no additional complaints GI Reports as per HPI and Reports no additional complaints Reports as per HPI Physical Exam Const General: cooperative, healthy appearing and comfortable Resp Effort & Inspection: normal respiratory effort Auscultation: clear to auscultation bilaterally Percussion: percussion normal Cardio Palpation: normal PMI Rate: regular rate Rhythm: regular rhythm Heart sounds: no murmurs and no rubs Peripheral pulses: Peripheral pulses 2+ throughout GI Inspection: Yes normal to inspection Palpation (GI): Soft to palpation, nontender, no guarding, not rigid and No hepatosplenomegaly present Percussion: Yes normal to percussion Auscultation: normal bowel sounds Rectal Exam - Female: deferred Assessment & Plan Assessment & Plan (1) Abnormal uterine bleeding: Comment: Abnormal endometrium by ultrasound Code(s): N93.9 - Abnormal uterine and vaginal bleeding, unspecified Category: Medical Plan: Discussed with the patient the finding on ultrasound showing abnormal endometrium. Recommended to the patient that the next step is an endometrial sampling via hysteroscopy D&C possible polypectomy versus endometrial biopsy to r/o endometrial pathology including hyperplasia or cancer. All the pros and cons risks and benefits of each approach were discussed with the patient, endometrial biopsy being less invasive, office procedure with less sensitivity and inability diagnose a polyp and removal versus hysteroscopy done under anesthesia more invasive more sensitive to endometrial cancer and possibility of diagnosing and endometrial polyp with the possibility of polypectomy. All questions were answered pt verbalized understanding and decided to proceed with hysteroscopy D&C possible polypectomy/myomectomy. Discussed with the patient the procedure , all benefits and risks including but not limited to inability to complete the procedure , insufficient endometrial tissue for a complete evaluation of the endometrial cavity , bleeding, infection, possible need for blood transfusion with all its risk ( HIV,syphilis, Hepatitis, anaphylaxis shock, others..), injury to bladder, rectum, possible need for laparoscopy/laparotomy or hysterectomy. The patient verbalized understanding and signed the consent. Instructions given the patient to stay NPO after midnight the day prior to the procedure and to take only the specific medication (s) discussed the morning of the surgical procedure and to schedule a 2 week postoperative appointment Coding Level of Care Code Est Pt Level 3 (11089) Diagnoses Abnormal uterine bleeding N93.9
[2024-06-13 12:13] VITALS: BP 130/82
== END 2024-06-13 12:41 | disposition home or self-care (01) ==
PROVIDERS: PCP Internal Medicine; Visit Provider Obstetrics & Gynecology
DX: N93.9 Abnormal uterine and vaginal bleeding, unspecified (principal)
CPT/HCPCS: 99213

== ENCOUNTER → 2024-06-13 12:06 | Outpatient (BNVA) | payer OTHER, SELFPAY | PROVIDERS: PCP Internal Medicine; Visit Provider Obstetrics & Gynecology ==

== ENCOUNTER 2024-06-16 09:16 | Outpatient (AMB) | payer OTHER, SELFPAY ==
--- NOTE | 2024-06-16 09:12 | MHC.PC.OV ---
Intake Visit Reasons: 2 months f/up Allergies polyethylene glycol 3350 [From MIRALAX] Allergy (Unknown, Verified 06/13/24 12:13) HIVES Medication List - Last Reconciled 06/16/24 by Kunal Benson MD epinephrine (EpiPen) 0.3 mg (0.3 mL) IM Q4H PRN escitalopram oxalate 5 mg (5 mL) PO DAILY 30 days Tobacco use date assessed: 04/08/24 Dental Screening Dental Screen Date: 04/08/24 HPI 2 months f/up HPI Details Chief Complaint Desire to adjust current medication dosage for anxiety. Assessment and Plan 49-year-old female with a history of generalized anxiety disorder presenting for medication management. The patient reports that she is currently on a regimen of 5 mg of medication, which has helped, but expresses a desire to increase the dose. Based on our discussion, increasing the dose to 10 mg is appropriate and likely to improve her symptoms further. There are no reported issues with medication tolerance or significant side effects so far. The patient also mentioned that her insurance requires a 90-day supply instead of a 30-day supply. This adjustment has been considered in her medication plan, and there is no indication of difficulty with the coverage of this alteration. 1. Medication Management Issue The prescription is adjusted to a 90-day supply in response to the patient's insurance requirement. A supply of 900 mL is to be dispensed, with instructions to take 10 mL daily. This adjustment is expected to align with the insurance's stipulations. The patient is informed about contacting us in case of any insurance issues arising from this change. 2. Generalized Anxiety Disorder The patient's current medication is being increased from 5 mg to 10 mg as the patient reports that the current regime is providing relief, yet a better response is anticipated with a higher dosage. The prescription is adjusted for a 90-day supply, considering insurance requirements. The aim is to maintain symptom control while evaluating for any potential side effects due to the increased dosage. The patient is instructed to report any adverse reactions or issues with the medication. Follow-up communication is planned in three to four months to assess the efficacy and any arising concerns. Problem List - Generalized anxiety disorder - Medication management issue Patient Instructions - Begin taking the adjusted dose of 10 mg daily. - The prescription has been sent for a 90-day supply of 900 mL, take 10 mL each day. - Monitor for any adverse effects and report them promptly. - Expect a check-in for a follow-up appointment to be scheduled three to four months from now. - Contact us if any issues arise with medication or insurance coverage. [facility]LY [facility] Medical History Uterine prolapse Dysplasia of cervix, low grade (LULI 1) Depression with anxiety GERD (gastroesophageal reflux disease) Anxiety Surgical History Hx of cholecystectomy Hx of LASIK Hx of breast augmentation Hx of wisdom tooth extraction Hx of tonsillectomy Family History Father Diabetes mellitus HTN (hypertension) High cholesterol Esophageal cancer Mother High cholesterol Maternal Grandmother Heart attack Paternal Grandmother Pneumonia Paternal Grandfather Diabetes mellitus Social History Housing: House Alcohol intake: current Alcohol intake frequency: holidays/special occasions only Patient Tobacco Use Status: Never used Tobacco e-Cigarette/Vaping Use: Never Used service: No Current occupational status: employed Sexual orientation: Straight/Heterosexual Gender identity: Female Cognitive needs: No Hearing needs: No Vision needs: Yes Female Reproductive History Menstrual Age of Menarche: 13 Questionnaire Thrive Questionnaire Date Thrive assessed: 04/08/24 MYESHA-7 AMB Questionnaire MYESHA-7 Date MYESHA - 7 assessed: 04/08/24 Source: Developed by Drs. Slim Forbes, Calista Blake, Ji Chong and colleagues, with an educational vanessa from [employer]. Review of Systems Const Denies chills and Denies fever(s) ENT Denies epistaxis and Denies nasal discharge Card Denies chest pain Resp Denies chest congestion, Denies cough and Denies hemoptysis GI Denies diarrhea and Denies nausea Skin/Breast Denies rash Neuro Reports no additional complaints Psych Reports no additional complaints Endo Reports no additional complaints Physical exam (Primary Care) Tobacco/Smoking Status: Tobacco use Status Tobacco use date assessed 04/08/24 06/16/24 09:12 Patient Tobacco Use Status Never used Tobacco 06/16/24 09:12 e-Cigarette/Vaping Use Never Used 06/16/24 09:12 Thrive Assessment: Date of Thrive Assessment Date Thrive assessed 04/08/24 06/16/24 09:12 Telehealth Telehealth [facility]health [facility]: [facility] Location of provider rendering services: practice address Location of patient: address on file Patient Identification confirmed using: Name, : Yes Telehealth method: voice only Patient verbally consented to treatment: Yes Patient verbally consented to billing insurance company: Yes Patient informed of any privacy concerns related to visit: Yes Minutes spent on Phone/Video with Pt.: 12 Coding Level of Care Code Tele Est Pt Level 3 (18695) Diagnoses Anxiety, generalized F41.1 Moderate episode of recurrent major depressive disorder F33.1 Active/Remission status: currently active Major depression episode severity: moderate Assessment & Plan Assessment & Plan (1) Anxiety, generalized: Code(s): F41.1 - Generalized anxiety disorder Category: Medical (2) Major depression, recurrent: Code(s): F33.9 - Major depressive disorder, recurrent, unspecified Category: Medical Qualifiers: Active/Remission status: currently active Major depression episode severity: moderate Qualified Code(s): F33.1 - Major depressive disorder, recurrent, moderate Plan Chief Complaint Desire to adjust current medication dosage for anxiety. Assessment and Plan 49-year-old female with a history of generalized anxiety disorder presenting for medication management. The patient reports that she is currently on a regimen of 5 mg of medication, which has helped, but expresses a desire to increase the dose. Based on our discussion, increasing the dose to 10 mg is appropriate and likely to improve her symptoms further. There are no reported issues with medication tolerance or significant side effects so far. The patient also mentioned that her insurance requires a 90-day supply instead of a 30-day supply. This adjustment has been considered in her medication plan, and there is no indication of difficulty with the coverage of this alteration. 1. Medication Management Issue The prescription is adjusted to a 90-day supply in response to the patient's insurance requirement. A supply of 900 mL is to be dispensed, with instructions to take 10 mL daily. This adjustment is expected to align with the insurance's stipulations. The patient is informed about contacting us in case of any insurance issues arising from this change. 2. Generalized Anxiety Disorder The patient's current medication is being increased from 5 mg to 10 mg as the patient reports that the current regime is providing relief, yet a better response is anticipated with a higher dosage. The prescription is adjusted for a 90-day supply, considering insurance requirements. The aim is to maintain symptom control while evaluating for any potential side effects due to the increased dosage. The patient is instructed to report any adverse reactions or issues with the medication. Follow-up communication is planned in three to four months to assess the efficacy and any arising concerns. Problem List - Generalized anxiety disorder - Medication management issue Patient Instructions - Begin taking the adjusted dose of 10 mg daily. - The prescription has been sent for a 90-day supply of 900 mL, take 10 mL each day. - Monitor for any adverse effects and report them promptly. - Expect a check-in for a follow-up appointment to be scheduled three to four months from now. - Contact us if any issues arise with medication or insurance coverage. Medications: Changed From escitalopram oxalate Take 1 tsp daily 5 mg (5 mL) PO DAILY 30 days 150 mL 0RF To escitalopram oxalate Take 1 tsp daily 10 mg (10 mL) PO DAILY 90 days 900 mL 1RF
== END 2024-06-16 11:25 | disposition home or self-care (01) ==
LOC: HO.HMCC 09:17
PROVIDERS: PCP Internal Medicine; Visit Provider Internal Medicine
DX: F41.1 Generalized anxiety disorder (principal); F33.1 Major depressive disorder, recurrent, moderate

== ENCOUNTER → 2024-06-16 09:16 | Outpatient (BNVA) | payer OTHER, SELFPAY | PROVIDERS: PCP Internal Medicine; Visit Provider Internal Medicine ==

== ENCOUNTER 2024-06-22 11:50 | Day surgery (SDC) | payer OTHER, SELFPAY ==
--- NOTE | 2024-06-20 14:29 | HO.ANESPROP2 ---
Documented by User: Aisha Butts NP 06/20/24 14:29 HPI - Anesthesia Eval Consult details Narrative: 49yo F for D&C Hysteroscopy possible myomectomy/polypectomy PMFSH Active Problems Active Problems: All Active Problems Abnormal uterine bleeding (Acute) Change in mole (Acute) Colon cancer screening (Acute) Allergies (Acute) Uterine prolapse (Acute) Vitamin D deficiency (Acute) Plantar wart, right foot (Acute) GERD without esophagitis (Acute) Anxiety, generalized (Acute) Major depression, recurrent (Acute) Encounter for general adult medical examination with abnormal findings (Acute) Change in facial mole (Acute) Hemotympanum (Acute) Anxiety (Acute) Past Medical History Medical History Uterine prolapse Dysplasia of cervix, low grade (LULI 1) Depression with anxiety GERD (gastroesophageal reflux disease) Anxiety Family History Family History Father Diabetes mellitus HTN (hypertension) High cholesterol Esophageal cancer Mother High cholesterol Maternal Grandmother Heart attack Paternal Grandmother Pneumonia Paternal Grandfather Diabetes mellitus Surgical History Surgical History Hx of cholecystectomy Hx of LASIK Hx of breast augmentation Hx of wisdom tooth extraction Hx of tonsillectomy Social History Social History Housing: House Are you a primary rn care transition to a significant other at home: No Do you presently have visiting nurse or other home services: No Alcohol intake: current Alcohol intake frequency: holidays/special occasions only Patient Tobacco Use Status: Never used Tobacco e-Cigarette/Vaping Use: Never Used service: No Current occupational status: employed Sexual orientation: Straight/Heterosexual Gender identity: Female Cognitive needs: No Hearing needs: No Vision needs: Yes Meds Allergies Allergy/AdvReac Type Severity Reaction Status Date / Time polyethylene glycol 3350 Allergy Unknown HIVES Verified 06/22/24 13:56 [From MIRALAX] Assessment and Plan Assessment Anesthesia Assessment: Chart Reviewed Documented by User: Davidson Feliciano MD 06/23/24 14:45 PMFSH Past Medical History Medical History Uterine prolapse Dysplasia of cervix, low grade (LULI 1) Depression with anxiety GERD (gastroesophageal reflux disease) Anxiety Patient : No Family History Family History Father Diabetes mellitus HTN (hypertension) High cholesterol Esophageal cancer Mother High cholesterol Maternal Grandmother Heart attack Paternal Grandmother Pneumonia Paternal Grandfather Diabetes mellitus Family history of problems with anesthesia: No Surgical History Surgical History Hx of cholecystectomy Hx of LASIK Hx of breast augmentation Hx of wisdom tooth extraction Hx of tonsillectomy History of Problems with Anesthesia: No Social History Social History Housing: House Are you a primary rn care transition to a significant other at home: No Do you presently have visiting nurse or other home services: No Alcohol intake: current Alcohol intake frequency: holidays/special occasions only Patient Tobacco Use Status: Never used Tobacco e-Cigarette/Vaping Use: Never Used service: No Current occupational status: employed Sexual orientation: Straight/Heterosexual Gender identity: Female Cognitive needs: No Hearing needs: No Vision needs: Yes Meds Allergies Allergy/AdvReac Type Severity Reaction Status Date / Time polyethylene glycol 3350 Allergy Unknown HIVES Verified 06/22/24 13:56 [From MIRALAX] Exam Airway Mallampati Class: II TM Dist: >3cm Neck ROM: Full Loose/Missing/Broken Teeth: No Heart: ok Lungs: ok Assessment and Plan Assessment Anesthesia Assessment: Anesthesia Plan Discussed Final Anesthetic Review Family History of Problems with Anesthesia: No History of Problems with Anesthesia: No NPO: Yes ASA Class: II Final Preanesthetic Review: No Changes in Pt Med Stat, Meds/Allgs Chart Reviewed, Consent Obtained/Reviewed and Anes Risks/Benef Reviewed Patient Risk: Low Procedure Risk: Low Anesthetic Plan Anesthetic Plan: GA, Agree w/ Assess. and Plan and TIVA
[2024-06-22 13:34] LABS: Urine Pregnancy NEGATIVE (NEGATIVE)
[2024-06-22 13:35] LABS: UPreg QC Valid YES
[2024-06-22 13:47] VITALS: BP 133/79; PULSE 76; RESP 14; TEMP 36.7; O2SAT 99; BMI 30.2
--- NOTE | 2024-06-22 13:48 | MHC.SHP ---
Pre-Procedural Eval Section A - 24 Hr Update-Section A only Date of Service: 06/22/24 The patient is an INPATIENT: No Changes since office visit: No Cold of Flu in the past 2 weeks, No New Medical Problems, No Changes in Medication and No Patient answered all questions The patient has been examined within 24 hours of the surgical procedure. The History & Physical has been completed within 30 days and I have reviewed it.: Yes Section B - Complete if H&P > 30 days Chief Complaint: Abnormal uterine and vaginal bleeding, unspecified Allergies: Allergies Allergy/AdvReac Type Severity Reaction Status Date / Time polyethylene glycol 3350 Allergy Unknown HIVES Verified 06/13/24 12:13 [From MIRALAX] Plan Diagnosis/Plan: Unchanged I have reviewed the history and physical and performed a pertinent physical examination on my patient. No changes have occurred unless specified. Time Spent With Patient Time: Total time managing care of this patient today ____ minutes.
[2024-06-22] MEDS: Lactated Ringers 1,000 ML 100 ML IVCONT (13:53)
--- NOTE | 2024-06-22 14:50 | P.OP_ITS ---
Operative Note Operative Note Date of Service: 06/22/24 Narrative: Preop Diagnosis: Abnormal uterine bleeding, abnormal endometrial by ultrasound Operation: Diagnostic Hysteroscopy, Dilataion & Curettage and polypectomy Post Op Diagnosis: 2 Endometrial Polyps QBL: Minimal Anesthesia: GLMA Surgeon: Nigel Miranda MD Center Hole Reamer: None Complication: None Pathology: Endometrial Scrapings, Endometrial polyp Procedure: The patient was put in the dorsal lithotomy position, scrubbed, and draped in the usual manner. A sterile speculum was inserted in the patient's vagina. The anterior lip of the cervix was grasped with a single tooth tenaculum. The cervix was dilated up to 5 mm, then the scope was inserted in the patient's uterus. Inspection revealed 2 endometrial polyps. The Myosure Reach device was used; it was introduced through the operative channel and polypectomies done with no complications. The scope was then taken out from the uterine cavity, sharp curettings was carried on with minimal to moderate amount of tissues retrieved. At the end of the procedure, all instruments were taken out of the patient uterine and vaginal cavity. The single tooth tenaculum was removed and homeostasis was assured using pressure,. The patient tolerated the procedure well and was transferred to the PACU in a stable condition.
--- NOTE | 2024-06-22 14:50 | PM.OP ---
Brief Operative Note Date of Service: 06/22/24 Pre-op diagnosis: Abnormal uterine bleeding, abnormal endometrium by ultrasound Post-op diagnosis: same Procedure: Hysteroscopy D&C, Polypectomy Surgeon: Nigel Miranda MD Anesthesia: GLMA Was an Lead Furnace Operator used for this Procedure?: No Estimated blood loss (mL): 0 Pathology: other (Endometrial Scrapping. Polyps) Condition: stable Disposition: PACU
[2024-06-22 14:57] VITALS: BP 119/70; PULSE 70; RESP 18; TEMP 36.6; O2SAT 97
[2024-06-22 15:00] VITALS: BP 121/61; PULSE 75; RESP 18; O2SAT 97
[2024-06-22 15:05] VITALS: BP 124/75; PULSE 59; RESP 16; O2SAT 97
[2024-06-22 15:10] VITALS: BP 128/89; PULSE 64; RESP 16; O2SAT 99
[2024-06-22 15:25] VITALS: BP 141/89; PULSE 66; RESP 16; TEMP 36.6; O2SAT 100
== END 2024-06-22 15:34 | disposition home or self-care (01) ==
PROVIDERS: PCP Internal Medicine; Visit Provider Obstetrics & Gynecology
PROC: 0UDB8ZZ Extraction of Endometrium, Via Natural or Artificial Opening Endoscopic (ICD-10-PCS; CPT 58558; principal; 2024-06-22 14:00)
DX: N93.9 Abnormal uterine and vaginal bleeding, unspecified (principal); N84.0 Polyp of corpus uteri; N83.292 Other ovarian cyst, left side; N81.4 Uterovaginal prolapse, unspecified; F41.8 Other specified anxiety disorders; Z88.8 Allergy status to other drugs, medicaments and biological substances; Z79.899 Other long term (current) drug therapy
CPT/HCPCS: 58558; 81025; 88305; J2003; J2405; J2704; J3010

== ENCOUNTER → 2024-06-22 11:50 | Outpatient (BNV) | payer OTHER, SELFPAY | PROVIDERS: PCP Internal Medicine; Visit Provider Obstetrics & Gynecology | DX: N93.9 Abnormal uterine and vaginal bleeding, unspecified (principal); N84.0 Polyp of corpus uteri | CPT/HCPCS: 58558 ==

== ENCOUNTER 2024-06-29 13:47 | Outpatient (AMB) | payer OTHER, SELFPAY ==
--- NOTE | 2024-06-29 13:49 | A.OFFVIS_ITS ---
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 The pathology showed the following: A. Endometrium, curettage: Secretory endometrium; no atypia or hyperplasia identified. B. Endometrium, polypectomies: Fragments of endometrial polyp with focal gland crowding; background secretory endometrium. See comment. Comment: A small focus of crowded glands is present in part B measuring less than 1 mm. These glands have minimally altered cytologic features, which raises the possibility of atypical endometrial hyperplasia (endometrial intraepithelial neoplasia, EIN). However, the size of the focus is insufficient to establish a diagnosis of atypical endometrial hyperplasia (EIN). Repeat endometrial sampling after an appropriate interval (e.g. 3-6 months) is recommended, as clinically appropriate. Last co testing in 10/03 was negative [facility] Medical History Uterine prolapse Dysplasia of cervix, low grade (LULI 1) Depression with anxiety GERD (gastroesophageal reflux disease) Anxiety Surgical History Hx of cholecystectomy Hx of LASIK Hx of breast augmentation Hx of wisdom tooth extraction Hx of tonsillectomy Family History Father Diabetes mellitus HTN (hypertension) High cholesterol Esophageal cancer Mother High cholesterol Maternal Grandmother Heart attack Paternal Grandmother Pneumonia Paternal Grandfather Diabetes mellitus Social History Housing: House Are you a primary career counselor to a significant other at home: No Do you presently have visiting nurse or other home services: No Alcohol intake: current Alcohol intake frequency: holidays/special occasions only Patient Tobacco Use Status: Never used Tobacco e-Cigarette/Vaping Use: Never Used service: No Current occupational status: employed Sexual orientation: Straight/Heterosexual Gender identity: Female Cognitive needs: No Hearing needs: No Vision needs: Yes Female Reproductive History Menstrual Age of Menarche: 13 Review of Systems Const All systems reviewed & are unremarkable except as noted in HPI and below Reports as per HPI and Reports no additional complaints GI Reports no additional complaints Reports no additional complaints Assessment & Plan Assessment & Plan (1) EIN (endometrial intraepithelial neoplasia): Comment: Focal crowding on EMB pathology raising the possibility of EIN Code(s): N85.02 - Endometrial intraepithelial neoplasia [EIN] Category: Medical Plan: Discussed with the patient the pathology of endometrial biopsy showing focal crowding raising the possibility of endometrial intraepithelial neoplasia, endometrial hyperplasia with atypia. Discussed with the patient the following: -If untreated the risk of progression of EIN to endometrial carcinoma is 83 percent -Coexistent endometrial carcinoma may be present in up to 40 percent of patients with EH with atypia -Given the high risk of concurrent, or progression to, endometrial carcinoma, for premenopausal patients who have completed childbearing, hysterectomy for treatment of EH with atypia is the preferred treatment. -Other options of treatment discussed with the patient include Progestin th erapy: A- levonorgestrel (LNG)-releasing intrauterine device (IUD; LNG 52), could be an alternative treatment, though long-term surveillance and medical therapy are required and treatment may not be curative, as with hysterectomy.This will be an option in following patients: Premenopausal patients who desire future fertility, patients of any reproductive status who decline hysterectomy, or in patients at high risk of surgical complications. Compliance with medical therapy and follow-up endometrial sampling is important. B-Progestin therapy includes intrauterine and oral progestins. There is a risk of 15 percent of the persistence of endometrial carcinoma and 23% risk of recurrence, the risk of which can increase with time. While various oral progestin therapies are effective for this indication, the LNG 52 IUD (Mirena, Liletta) is the most effective first-line therapy , compared with oral progestins levonorgestrel IUD treatment is associated with higher regression rates (90 versus 69 percent in oral progestin and lower relapse rates (27 versus 50 percent). The patient is interested in surgical management Will refer the patient to [facility] for further manage Appointment scheduled on 07/18/2024 at 13:[address] Dan, the patient is aware Orders: Referrals Gynecologic Oncology Referral N85.02 - Endometrial intraepithelial neoplasia [EIN] Coding Level of Care Code Est Pt Level 3 (42089) Diagnoses EIN (endometrial intraepithelial neoplasia) N85.02
== END 2024-06-29 14:07 | disposition home or self-care (01) ==
LOC: HO.HWS 13:47
PROVIDERS: PCP Internal Medicine; Visit Provider Obstetrics & Gynecology
DX: N85.02 Endometrial intraepithelial neoplasia [EIN] (principal)
CPT/HCPCS: 99213

== ENCOUNTER → 2024-06-29 13:47 | Outpatient (BNVA) | payer OTHER, SELFPAY | PROVIDERS: PCP Internal Medicine; Visit Provider Obstetrics & Gynecology ==

== ENCOUNTER 2024-11-23 15:09 | Outpatient (AMB) | payer OTHER, SELFPAY ==
[2024-11-23 15:11] VITALS: BP 128/84; PULSE 92; O2SAT 98; BMI 32.7
--- NOTE | 2024-11-23 15:11 | A.OFFPC_ITS ---
Vital Signs 11/23/24 15:11 Height 5 ft 1 in Weight 173 lb 4 oz BMI 32.7 BP 128/84 Blood Pressure Location Rt brachial Position Sitting Pulse 92 Pulse Source Pulse Oximeter Pulse Oximetry (%) 98 Oxygen Delivery Method Room Air Intake Visit Reasons: F/U Anxiety/Depression Allergies polyethylene glycol 3350 [From MIRALAX] Allergy (Unknown, Verified 11/23/24 15:11) HIVES Medication List - Last Reconciled 11/23/24 by Kunal Benson MD cyclobenzaprine 10 mg PO TID PRN epinephrine (EpiPen) 0.3 mg (0.3 mL) IM Q4H PRN Tobacco use date assessed: 11/23/24 Dental Screening Dental Screen Date: 11/23/24 Did you have a dental visit in the last 12 months?: Yes Did you have a dental problem in the last 6 months where you did not have access to dental care?: No Was dental information given to patient?: Patient has dentist HPI F/U Anxiety/Depression HPI Details History - The patient is a 49-year-old female pr esenting with weight gain. And to follow up on anxiety and depression - The patient reports a weight increase from 160 lbs in June to 173 lbs currently, noting a gain of 13 lbs. - She indicates a heightened appetite an d difficulties losing weight despite attempts at exercise and dieting. - The patient acknowledges a potential c orrelation between her current medication and increased appetite. Lexapro 10 mg - She further reports persistent fatigue . - Despite sleeping 8 to 10 hours, she fe els fatigued and tired throughout the day. - The patient states that she is less ac tive due to her busy schedule and feels tired after work. - Additionally, she reports a right ankl e sprain that occurred about a month ago. - She twisted her ankle while wearing [employer] boots, resulting in a fall. - The ankle remains sore, though it is s table, and she experiences discomfort while wearing certain clothing. - The patient continues to use the tread mill, which may be prolonging recovery. Problem List - Obesity - Sprained right ankle - Generalized fatigue - Anxiety - Depression Patient Instructions - Continue your current medication regim en Lexapro 10 mg and take the new medication as prescribed in the morning. Wellbutrin 150 mg - Monitor your caloric intake and try to reduce it if you are not able to exercise due to ankle pain. - Consider cutting back on salad dressin gs and choose lower-calorie options. - If needed, use protein shakes as a irving l replacement instead of a full lunch. - Follow up through the patient portal i f you experience changes with the new medication. - Allow your ankle time to heal; reduce physical strain and exercise selectively. - Schedule and complete your mammogram a s soon as possible. - Address therapy referral for anxiety i f needed. Patient will meet with our behavior health coordinator today Review of Systems - General: No fever no chills - Neurological: No headaches no dizziness - Ear nose throat: No sore throat no hearing difficulty no ear pain - Cardiovascular: No syncope, no chest pain, no palpitations - Gastrointestinal: No nausea vomiting or diarrhea - Endocrine: No polyuria polydipsia no heat intolerance - Genitourinary: No dysuria , no blood in urine Physical Exam General: No acute distress HEENT: No acute findings Neck: Supple Respiratory system: Able to talk in full sentences, no audible wheeze Cardiovascular: S1-S2 regular in rate and rhythm Gastrointestinal: No pain Extremities: Right ankle sprained, sore but stable PRODUCTION ADMINISTRATOR: Alert awake oriented x3 motor sensory intact Skin: Normal turgor PFSH Medical History Uterine prolapse Dysplasia of cervix, low grade (LULI 1) Depression with anxiety GERD (gastroesophageal reflux disease) Anxiety Surgical History Hx of cholecystectomy Hx of LASIK Hx of breast augmentation Hx of wisdom tooth extraction Hx of tonsillectomy Family History Father Diabetes mellitus HTN (hypertension) High cholesterol Esophageal cancer Mother High cholesterol Maternal Grandmother Heart attack Paternal Grandmother Pneumonia Paternal Grandfather Diabetes mellitus Social History Housing: House Are you a primary care mgr to a significant other at home: No Do you presently have visiting nurse or other home services: No Alcohol intake: current Alcohol intake frequency: holidays/special occasions only Patient Tobacco Use Status: Never used Tobacco e-Cigarette/Vaping Use: Never Used service: No Current occupational status: employed Sexual orientation: Straight/Heterosexual Gender identity: Female Cognitive needs: No Hearing needs: No Vision needs: Yes Female Reproductive History Menstrual Age of Menarche: 13 Questionnaire PHQ-9 Over the last 2 weeks, how often have you been bothered by any of the following problems? 1. Little interest or pleasure in doing things: several days 2. Feeling down, depressed, or hopeless: several days 3. Trouble falling or staying asleep, or sleeping too much: not at all 4. Feeling tired or having little energy: nearly every day 5. Poor appetite or overeating: not at all 6. Feeling bad about yourself - or that you are a failure or have let yourself or your family down: not at all 7. Trouble concentrating on things, such as reading the newspaper or watching television: not at all 8. Moving or speaking so slowly that other people could have noticed. Or the opposite - being so fidgety or restless that you have been moving around a lot more than usual: not at all 9. Thoughts that you would be better off or of hurting yourself in some way: not at all Total score: 5 Depression Screening Interpretation: Negative Depression Screening Done: Yes 40323 - PHQ-9 Billing: Yes Source: Developed by Drs. Slim Forbes, Calista Blake, Ji Chong and colleagues, with an educational vanessa from [employer]. Thrive Questionnaire Date Thrive assessed: 11/23/24 I am a: Patient What is your living situation today?: I have a steady place to live Within the past 12 months, did the food you bought not last and you didn't have the money to get more?: Never true Within the past 12 months, did you worry whether your food would run out before you got money to buy more?: Never true Do you have trouble paying for medicines?: No Do you have trouble getting transportation to medical appointments?: No Do you have trouble paying your heating and electricity bill?: No Do you have trouble taking care of your child, family member or friend?: No Do you have trouble with day-to-day activities such as bathing, preparing meals, shopping, managing finances, etc.?: No Are you currently unemployed and looking for a job?: No Are you interested in more education?: No Please select the resources that you would like help with: None Currently or been in a relationship where the following occur: No concerns reported THRIVE Score: 0 AUDIT C Alcohol Use Questionnaire (AUDIT-C) 1. How often do you have a drink containing alcohol?: 2-4 times a month 2. How many drinks containing alcohol do you have on a typical day when you are drinking?: 1 or 2 3. How often do you have six or more drinks on one occasion?: Never Total Score: 2 Score Reviewed/Action Taken: Yes MYESHA-7 AMB Questionnaire MYESHA-7 Date MYESHA - 7 assessed: 11/23/24 Feeling nervous, anxious, or on edge: 0 = Not at all Not being able to stop or control worryin = Not at all Worrying too much about different things: 0 = Not at all Trouble relaxin = Not at all Being so restless that it is hard to sit still: 0 = Not at all Becoming easily annoyed or irritable: 0 = Not at all Feeling afraid as if something awful might happen: 0 = Not at all Total MYESHA-7 score (0-4 normal; 5-9 mild; 10-14 moderate; 15-21 severe): 0 Source: Developed by Drs. Slim Forbes, Calista Blake, Ji Chong and colleagues, with an educational vanessa from [employer]. MYESHA-7 Assessment Billing MYESHA-7 Assessment Tool: MYESHA-7 Assessment 98288 Physical exam (Primary Care) Vital Signs: Last Vital Signs Pulse 92 11/23/24 15:11 BP 128/84 11/23/24 15:11 Pulse Ox 98 11/23/24 15:11 Oxygen Delivery Method Room Air 11/23/24 15:11 BMI result Body Mass Index 32.7 Tobacco/Smoking Status: Tobacco use Status Tobacco use date assessed 11/23/24 11/23/24 15:13 Patient Tobacco Use Status Never used Tobacco 11/23/24 15:13 e-Cigarette/Vaping Use Never Used 11/23/24 15:13 PHQ-9: PHQ-9 Score PHQ-9: Total score 5 11/23/24 15:32 Depression Screening Interpretation: Negative Thrive Assessment: Date of Thrive Assessment Date Thrive assessed 11/23/24 11/23/24 15:13 Currently or been in a relationship where the following occur: No concerns reported Coding Level of Care Code Est Pt Level 4 (56649) Diagnoses Sprain of other ligament of right ankle, initial encounter S93.491A Encounter type: initial encounter Involved ligament of ankle: other ligament Moderate episode of recurrent major depressive disorder F33.1 Active/Remission status: currently active Major depression episode severity: moderate Anxiety, generalized F41.1 Vitamin D deficiency E55.9 Additional Codes MYESHA-7 Assessment Billing - MYESHA-7 Assessment Tool: MYESHA-7 Assessment 13365 ([id number]) PHQ-9 - 22775 - PHQ-9 Billing: Yes ([id number]) Assessment & Plan Assessment & Plan (1) Right ankle sprain: Code(s): S93.401A - Sprain of unspecified ligament of right ankle, initial encounter Category: Medical Qualifiers: Encounter type: initial encounter Involved ligament of ankle: other ligament Qualified Code(s): S93.491A - Sprain of other ligament of right ankle, initial encounter (2) Major depression, recurrent: Code(s): F33.9 - Major depressive disorder, recurrent, unspecified Category: Medical Qualifiers: Active/Remission status: currently active Major depression episode severity: moderate Qualified Code(s): F33.1 - Major depressive disorder, recurrent, moderate (3) Anxiety, generalized: Code(s): F41.1 - Generalized anxiety disorder Category: Medical (4) Vitamin D deficiency: Code(s): E55.9 - Vitamin D deficiency, unspecified Category: Medical Plan History - The patient is a 49-year-old female presenting with weight gain. And to follow up on anxiety and depression - The patient reports a weight increase from 160 lbs in June to 173 lbs currently, noting a gain of 13 lbs. - She indicates a heightened appetite and difficulties losing weight despite attempts at exercise and dieting. - The patient acknowledges a potential correlation between her current medication and increased appetite. Lexapro 10 mg - She further reports persistent fatigue. - Despite sleeping 8 to 10 hours, she feels fatigued and tired throughout the day. - The patient states that she is less active due to her busy schedule and feels tired after work. - Additionally, she reports a right ankle sprain that occurred about a month ago. - She twisted her ankle while wearing high boots, resulting in a fall. - The ankle remains sore, though it is stable, and she experiences discomfort while wearing certain clothing. - The patient continues to use the treadmill, which may be prolonging recovery. Problem List - Obesity - Sprained right ankle - Generalized fatigue - Anxiety - Depression Patient Instructions - Continue your current medication regimen Lexapro 10 mg and take the new medication as prescribed in the morning. Wellbutrin 150 mg - Monitor your caloric intake and try to reduce it if you are not able to exercise due to ankle pain. - Consider cutting back on salad dressings and choose lower-calorie options. - If needed, use protein shakes as a meal replacement instead of a full lunch. - Follow up through the patient portal if you experience changes with the new medication. - Allow your ankle time to heal; reduce physical strain and exercise selectively. Physical therapy on hold patient would like to give some more time and see if it heals - Schedule and complete your mammogram as soon as possible. - Address therapy referral for anxiety if needed. Patient will meet with our behavior health coordinator today Orders: Orders Comprehensive [place]. Panel Fast Today E55.9 - Vitamin D deficiency, unspecified, F33.1 - Major depressive disorder, recurrent, moderate, F41.1 - Generalized anxiety disorder, S93.401A - Sprain of unspecified ligament of right ankle, initial encounter Vitamin D 25-OH (D2 and D3) Today E55.9 - Vitamin D deficiency, unspecified, F33.1 - Major depressive disorder, recurrent, moderate, F41.1 - Generalized anxiety disorder, S93.401A - Sprain of unspecified ligament of right ankle, initial encounter Vitamin B12 Today E55.9 - Vitamin D deficiency, unspecified, F33.1 - Major depressive disorder, recurrent, moderate, F41.1 - Generalized anxiety disorder, S93.401A - Sprain of unspecified ligament of right ankle, initial encounter Complete Blood Count Auto Diff Today E55.9 - Vitamin D deficiency, unspecified, F33.1 - Major depressive disorder, recurrent, moderate, F41.1 - Generalized anxiety disorder, S93.401A - Sprain of unspecified ligament of right ankle, initial encounter TSH reflex Free T4 Today E55.9 - Vitamin D deficiency, unspecified, F33.1 - Major depressive disorder, recurrent, moderate, F41.1 - Generalized anxiety disorder, S93.401A - Sprain of unspecified ligament of right ankle, initial encounter Lipid Panel Today E55.9 - Vitamin D deficiency, unspecified, F33.1 - Major depressive disorder, recurrent, moderate, F41.1 - Generalized anxiety disorder, S93.401A - Sprain of unspecified ligament of right ankle, initial encounter Medications: New bupropion HCl SR (Wellbutrin SR) 150 mg PO QAM 30 tabs 0RF Refilled escitalopram oxalate Take 1 tsp daily 10 mg (10 mL) PO DAILY 90 days 900 mL 1RF
--- OUTSIDE RECORDS SUMMARY | 2024-11-23 15:13 | XMS_ITS | Data Portability ---
Author Organization [facility], [address] Address [address] [place] [address] Care Team Providers Care Door To Door Fundraising Collector Name Role Phone [facility] Primary Care Provider Assessment No assessment recorded. Plan of Treatment Reminders Order Date Submit Date Provider Last Modified By Organization Details Last Modified Time Details Appointments None recorded. Lab rapid SARS CoV 2 Ag, QL IA, respiratory specimen 2022 023 [email or web address] 5 [facility] [address], [address] [place], [address], 18:20:55 rapid strep group A, throat 2022 023 [email or web address] 5 [facility] [address], [address] [place], [address], 18:20:55 Referral None recorded. Procedures None recorded. Surgeries None recorded. Imaging None recorded. Medication Orders amoxicillin 500 mg capsule 2022 023 [email or web address] 5 [id number], [address] [place], [address], 09:56:00 Patient TargetsNo targets recorded. Patient Instructions Encounter Date Encounter Id Patient Instructions Last Modified By Organization Details Last Modified Time 11/24/2022 [id number] strep throat: care instructions [email or web address] Not available 11/24/2022 18:21:50 coronavirus (covid-19): care instructions Not available 11/24/2022 18:20:55 Rest. Drink plenty of fluids. Gargle with warm salty water several times daily. Take the antibiotic as prescribed. Obtain a new toothbrush in 2 days. See printed instructions and work note. Over the counter tylenol or ibuprofen may be taken per package instructions for fever or pain. Nutritional supplements that may be beneficial for covid 19 include: Vitamin D3 5,000IU daily Vitamin C 1,000mg 3 times daily Zinc 50mg daily Quercetin 500mg 2 times daily Elderberry Curcumin Melatonin at bedtime Follow-up with your doctor if no improvement in a few days. Seek Emergency Medical evaluation for any worsening symptoms. Quarantine for 5 days from onset of symptoms at home. On day #6 if you are feeling well you may return to work with a mask. Generally you should be on the antibiotics for strep throat for 2 days prior to returning to work. [email or web address] Not available 11/24/2022 18:27:06 Reason for Referral None Reported. Results Created Date Observation Date Name Description Value Unit Range Abnormal Flag Note LastModifiedBy Organization Detail LastModifiedTime 11/25/19 23 11/24/2022 rapid SARS CoV 2 Ag, QL IA, respi rator y speci men Unknown Analyte Normal =Negat iram Not Available [address] [place], [address], 11/24/2022 16:57:02 11/25/19 23 11/24/2022 rapid SARS CoV 2 Ag, QL IA, respi rator y speci men Unknown Analyte positi ve Not Available [address] [place], [address], 11/24/2022 16:57:02 11/25/19 23 11/24/2022 rapid strep group A, throa t Unknown Analyte Normal = Negati ve Not Available [address] [place], [address], 11/24/2022 16:58:32 11/25/19 23 11/24/2022 rapid strep group A, throa t Unknown Analyte positi ve Not Available [address] [place], [address], 11/24/2022 16:58:32 Result Notes None recorded. Problems No Known Problems Procedures Surgical History Date Name Laterality Status Provider Name and Address Organization Details Recorded Time cholecystectomy completed MALLORY ALARCON PA - [facility] 11/24/2022 17:04:23 Imaging Results None recorded. Procedure Notes None recorded. Medical Equipment None Reported. Allergies Allergen ID Allergen Name Allergen Category Reaction Reaction Severity Criticality Documentation Date Start Date Code Code System Note Provider Name and Address Organization Details Recorded Time [id number] Miralax medicatio n anaphylax is Not available Not available 11/24/2022 65996 5 RxNorm MALLORY watkins PA [facility] 3 17:00:42 Medications Name Sig Start Date Stop Date Status Note LastModified by Organization Details LastModified Time amoxicillin 500 mg capsule Take 1 capsule twice a day by oral route for 10 days. 2022 active Not Available Not Available Not Avai lable alprazolam 0.25 mg tablet TAKE 1 TABLET BY MOUTH EVERY DAY NEEDED FOR ANXIETY 11/24 completed Not Available Not Available Not Available pantoprazole 40 mg tablet,delay ed release TAKE 1 TABLET BY MOUTH EVERY DAY 11/24 completed Not Available Not Available Not Available escitalopram 5 mg tablet TAKE 1 TABLET BY MOUTH EVERY DAY 11/24 completed Not Available Not Available Not Available Vitals Date Recorded Body height Body mass index (BMI) Body weight Pain severity - 0-10 verbal numeric rating [Score] - Reported Respiratory rate Oxygen saturation Oxygen saturation in Arterial blood by Pulse oximetry Heart rate Body temperature Systolic blood pressure Diastolic blood pressure Provider Name and Address Organization Details Last Updated DateTime 3 154.94 cm 28.3 kg/m2 72127.8 6 g 4 16 /min 99 % 99 % 75 /min 98.5 [degF] 128 mm[Hg] 70 mm[Hg] MALLORY ALARCON PA - [facility] 3 17:14:42 Social History Question Answer Notes LastModified by Organizat ion Details LastModified Time Tobacco Smoking Status Never Smoker MALLORY watkins PA - [facility] 11/24/2022 17:03:55 Have You Recently Traveled Abroad? No Information not available 11/24/2022 Sex: Unknown Functional Status Question Answer Note LastModified by Organizat ion Details LastModified Time Do you use any illicit or recreational drugs? No Information not available 11/24/2022 Do you or have you ever used any other forms of tobacco or nicotine? No Information not available 11/24/2022 What is your level of alcohol consumption? Occasional Information not available 11/24/2022 Mental Status None recorded. Family History Relationship Description Onset Age of this Age Resolved Age Notes LastModified by Organization Details LastModified Time Father Diabetes mellitus [email or web address] Not available 2022 17:02:44 Father Hyperlipidem ia [email or web address] Not available 2022 17:02:50 Father Malignant tumor of esophagus [email or web address] Not available 2022 17:03:04 Medical History No medical history recorded. Gynecological History Statement/Question Response Date of LMP 11/10/2022 Is there any chance of ? No LMP Approximate Obstetrics History GPAL:G 0 P 0 0 0 0 Immunizations Vaccine Type Date Status Note Provider Nam e and Address Organization Details Recorded Time Influenza, split virus, quadrivalent, preservative 9 completed MALLORY MACHNACZ null, PA - [facility] 11/24/2022 17:00:25 Influenza, split virus, quadrivalent, preservative 6 completed MALLORY MACHNACZ null, PA - [facility] 11/24/2022 17:00:25 Influenza, split virus, quadrivalent, preservative 9 completed MALLORY MACHNACZ null, PA - [facility] 11/24/2022 17:00:25 COVID-19, mRNA, LNP-S, PF, 100 mcg/0.5mL dose or 50 mcg/0.25mL dose 1 completed MALLORY MACHNACZ null, PA - [facility] 11/24/2022 17:00:25 COVID-19, mRNA, LNP-S, PF, 100 mcg/0.5mL dose or 50 mcg/0.25mL dose 1 completed MALLORY MACHNACZ null, PA - [facility] 11/24/2022 17:00:25 Tdap 5 completed MALLORY MACHNACZ null, PA - [facility] 11/24/2022 17:00:25 Influenza, split virus, quadrivalent, PF 8 completed MALLORY MACHNACZ null, PA - [facility] 11/24/2022 17:00:25 Influenza, split virus, quadrivalent, PF 2 completed MALLORY MACHNACZ null, PA - [facility] 11/24/2022 17:00:25 Influenza, split virus, quadrivalent, PF 0 completed MALLORY MACHNACZ null, PA - [facility] 11/24/2022 17:00:25 Past Encounters Encounter ID Performer Location Encounter Start Date Encounter Closed Date Diagnosis/Indication Diagnosis SNOMED-CT Code Diagnosis ICD10 Code Diagnosis [place] [id number] [place] [address] [facility] [address] [place] [address] 11/24/2022 16:01:56 11/24/2022 18:25:55 Acute COVID-19 3323187708 U07.1 Streptococ lamine sore throat 71761146 J02.0 Health Concerns Section Related Observation LastModified by Organization Detai ls LastModified Time None Recorded Concern Status LastModified by Organization Details LastModified Time None Recorded Advance Directives Directive None Recorded Payers Insurance Date Sequence Insurance Name Policy Number Policy Fay Covered Member ID Fay Member ID Guarantor Name 11/24/[address] [place] [address] [id number] Tyesha Moya [id number] Tyesha Moya Notes Date Note Type Note Provider Name and Address Organization Details Recorded Time 11/24/2022 text/html COVID-19 SymptomsReported bypatient.COVID-19 Signs and Symptomscough same; headache same; sore throat same Quality:dry cough Severity:mild Duration:symptoms lasting 3 days Associated Symptoms:no sputum production; no wheezing; no nausea; no vomiting; no diarrhea; no ear pain or pressure; no lymphadenopathy; no fever/chills; no body aches; no change in mental status;runny nose;headache Prior Labs and ImagingNone.Notes:47 year old female presenting for evaluation of nasal congestion, sore throat, dry cough and mild frontal headache for the past 3 days. No fever, chills, rash, stiff neck, visual disturbance, chest pain, shortness of breath, GI symptoms, body aches or fatigue. Two family members have similar symptoms. [facility] Awad [facility] [address] [facility] [place], [address], [place] - [facility] 11/25/2022 10:08:43 OBGyn Episode No OBEpisode recorded.
== END 2024-11-23 16:18 | disposition home or self-care (01) ==
LOC: HO.HMCC 15:09
PROVIDERS: PCP Internal Medicine; Visit Provider Internal Medicine
DX: S93.491A Sprain of other ligament of right ankle, initial encounter (principal); F33.1 Major depressive disorder, recurrent, moderate; F41.1 Generalized anxiety disorder; E55.9 Vitamin D deficiency, unspecified

== ENCOUNTER → 2024-11-23 15:09 | Outpatient (BNVA) | payer OTHER, SELFPAY | PROVIDERS: PCP Internal Medicine; Visit Provider Internal Medicine | DX: S93.491A Sprain of other ligament of right ankle, initial encounter (principal); F33.2 Major depressive disorder, recurrent severe without psychotic features; F33.1 Major depressive disorder, recurrent, moderate; F41.1 Generalized anxiety disorder; E55.9 Vitamin D deficiency, unspecified; X58.XXXA Exposure to other specified factors, initial encounter; Y93.9 Activity, unspecified; Y92.9 Unspecified place or not applicable; Y99.9 Unspecified external cause status; Z71.89 Other specified counseling | CPT/HCPCS: 96127 ==

== ENCOUNTER 2025-01-20 09:30 | Outpatient (AMB) | payer OTHER, SELFPAY ==
--- NOTE | 2025-01-20 09:34 | MHC.PC.OV ---
Intake Visit Reasons: med f/up Digital Traffic Coordinator Required: No Accompanied by: Self / Same As Patient Allergies polyethylene glycol 3350 (From MIRAL[facility]) Allergy (Unknown, Verified 01/20/25 09:34) HIVES Medication List - Last Reconciled 01/20/25 by Kunal Benson MD bupropion HCl SR (Wellbutrin SR) 150 mg PO QAM cyclobenzaprine 10 mg PO TID PRN epinephrine (EpiPen) 0.3 mg (0.3 mL) IM Q4H PRN escitalopram oxalate 10 mg (10 mL) PO DAILY 90 days Tobacco use date assessed: 01/20/25 Dental Screening Dental Screen Date: 11/23/24 HPI med f/up HPI Details History - The patient is a 49-year-old female presenting with follow-up on medication management. For depression and anxiety - Receiving treatment with Wellbutrin since November. - Reports the medication has been effective in managing symptoms with no side effects. - Patient mentions feeling off during menstruation. - There is a consideration of adjusting Lexapro dosage to help stabilize symptoms during menstruation. Medical History: - Depression, current treatment with Wellbutrin and Lexapro Patient Instructions - Continue taking Wellbutrin 150 mg every morning. - The Lexapro dose will be increased to 20 mg. - Prescription will be filled for a 90-day supply. Review of Systems - General: No fever no chills - Neurological: No headaches no dizziness - Ear nose throat: No sore throat no hearing difficulty no ear pain - Cardiovascular: No syncope, no chest pain, no palpitations - Gastrointestinal: No nausea vomiting or diarrhea PFSH Medical History Uterine prolapse Dysplasia of cervix, low grade (LULI 1) Depression with anxiety GERD (gastroesophageal reflux disease) Anxiety Surgical History Hx of cholecystectomy Hx of LASIK Hx of breast augmentation Hx of wisdom tooth extraction Hx of tonsillectomy Family History Father Diabetes mellitus HTN (hypertension) High cholesterol Esophageal cancer Mother High cholesterol Maternal Grandmother Heart attack Paternal Grandmother Pneumonia Paternal Grandfather Diabetes mellitus Social History Housing: House Are you a primary healthcare administration intern to a significant other at home: No Do you presently have visiting nurse or other home services: No Alcohol intake: current Alcohol intake frequency: holidays/special occasions only Patient Tobacco Use Status: Never used Tobacco e-Cigarette/Vaping Use: Never Used service: No Current occupational status: employed Sexual orientation: Straight/Heterosexual Gender identity: Female Cognitive needs: No Hearing needs: No Vision needs: Yes Female Reproductive History Menstrual Age of Menarche: 13 Questionnaire Thrive Questionnaire Date Thrive assessed: 11/23/24 MYESHA-7 AMB Questionnaire MYESHA-7 Date MYESHA - 7 assessed: 11/23/24 Source: Developed by Drs. Slim Forbes, Calista Blake, Ji Chong and colleagues, with an educational vanessa from [employer]. Physical exam (Primary Care) Tobacco/Smoking Status: Tobacco use Status Tobacco use date assessed 01/20/25 01/20/25 09:37 Patient Tobacco Use Status Never used Tobacco 01/20/25 09:37 e-Cigarette/Vaping Use Never Used 01/20/25 09:37 Thrive Assessment: Date of Thrive Assessment Date Thrive assessed 11/23/24 01/20/25 09:37 Telehealth Telehealth Telehealth Platform: Telephone Location of provider rendering services: practice address Location of patient: address on file Patient Identification confirmed using: Name, : Yes Telehealth method: voice only Patient verbally consented to treatment: Yes Patient verbally consented to billing insurance company: Yes Patient informed of any privacy concerns related to visit: Yes Minutes spent on Phone/Video with Pt.: 13 Coding Level of Care Code Tele Est Pt Level 3 (50673) Diagnoses Moderate episode of recurrent major depressive disorder F33.1 Active/Remission status: currently active Major depression episode severity: moderate Anxiety, generalized F41.1 Assessment & Plan Assessment & Plan (1) Major depression, recurrent: Code(s): F33.9 - Major depressive disorder, recurrent, unspecified Category: Medical Qualifiers: Active/Remission status: currently active Major depression episode severity: moderate Qualified Code(s): F33.1 - Major depressive disorder, recurrent, moderate (2) Anxiety, generalized: Code(s): F41.1 - Generalized anxiety disorder Category: Medical Plan History - The patient is a 49-year-old female presenting with follow-up on medication management. For depression and anxiety - Receiving treatment with Wellbutrin since November. - Reports the medication has been effective in managing symptoms with no side effects. - Patient mentions feeling off during menstruation. - There is a consideration of adjusting Lexapro dosage to help stabilize symptoms during menstruation. Medical History: - Depression, current treatment with Wellbutrin and Lexapro Patient Instructions - Continue taking Wellbutrin 150 mg every morning. - The Lexapro dose will be increased to 20 mg. - Prescription will be filled for a 90-day supply. Review of Systems - General: No fever no chills - Neurological: No headaches no dizziness - Ear nose throat: No sore throat no hearing difficulty no ear pain - Cardiovascular: No syncope, no chest pain, no palpitations - Gastrointestinal: No nausea vomiting or diarrhea Medications: New escitalopram oxalate (Lexapro) 20 mg PO DAILY 90 tabs 0RF Refilled bupropion HCl SR (Wellbutrin SR) 150 mg PO QAM 90 tabs 1RF Discontinued escitalopram oxalate Take 1 tsp daily Discontinued Reason: Doctor's Order 10 mg (10 mL) PO DAILY 90 days 900 mL 1RF
--- OUTSIDE RECORDS SUMMARY | 2025-01-20 09:45 | XMS_ITS | Data Portability ---
Author Organization [facility], [address] [place] [address] Care Team Providers Care Cotton Jammer Name Role Phone [facility] Primary Care Provider Assessment No assessment recorded. Plan of Treatment Reminders Order Date Submit Date Provider Last Modified By Organization Details Last Modified Time Details Appointments None recorded. Lab rapid SARS CoV 2 Ag, QL IA, respiratory specimen 2022 023 [email or web address] [facility] [address], [address] [place], [address], 18:20:55 rapid strep group A, throat 2022 023 [email or web address] [facility] [address], [address] [place], [address], 18:20:55 Referral None recorded. Procedures None recorded. Surgeries None recorded. Imaging None recorded. Medication Orders amoxicillin 500 mg capsule 2022 023 [email or web address] [id number], [address] [place], [address], 09:56:00 Patient TargetsNo targets recorded. Patient Instructions Encounter Date Encounter Id Patient Instructions Last Modified By Organization Details Last Modified Time 11/24/2022 [id number] strep throat: care instructions [email or web address] Not available 11/24/2022 18:21:50 coronavirus (covid-19): care instructions [email or web address] Not available 11/24/2022 18:20:55 Rest. Drink plenty [...] 2 days prior to returning to work. [email or web address] Not available 11/24/2022 18:27:06 Reason for Referral None Reported. Results Created Date Observation Date Name Description Value Unit Range Abnormal Flag Note LastModifiedBy Organization Detail LastModifiedTime 11/25/19 23 11/24/2022 rapid SARS CoV 2 Ag, QL IA, respi rator y speci men Unknown Analyte Normal =Negat iram Not Available [address] [place], [address], 11/24/2022 16:57:02 11/25/19 23 11/24/2022 rapid SARS CoV 2 Ag, QL IA, respi rator y speci men Unknown Analyte positi ve Not Available [address] [place], [address], 11/24/2022 16:57:02 11/25/19 23 11/24/2022 rapid strep group A, throa t Unknown Analyte Normal = Negati ve Not Available [address] [place], [address], 11/24/2022 16:58:32 11/25/19 23 11/24/2022 rapid strep group A, throa t Unknown Analyte positi ve Not Available [address] [place], [address], 11/24/2022 16:58:32 Result Notes None recorded. Problems [...] Name and Address Organization Details Recorded Time [id number] Miralax medicatio n anaphylax is Not available Not available 11/24/2022 30670 5 [facility] TOD Deleon [facility] 3 17:00:42 Medications Name Sig [...] height Body mass index (BMI) Body weight Respiratory rate Oxygen saturation Oxygen saturation in Arterial blood by Pulse oximetry Heart rate Body temperature Systolic And Diastolic Provider Name and Address Organization Details Last Updated DateTime 3 154.94 cm 28.3 kg/m2 17477.8 6 g 16 /min 99 % 99 % 75 /min 98.5 [degF] 128/70 mm[Hg] MALLORY ALARCON PA - [facility] [...] SNOMED-CT Code Diagnosis ICD10 Code Diagnosis Note [id number] [place] [address] [facility] [address] [place] [address] 11/24/2022 16:01:56 11/24/2022 18:25:55 Acute COVID-19 [id number] U07.1 Streptococ lamine sore throat 99390093 J02.0 Health Concerns Section Related Observation LastModified by Organization Detai ls LastModified Time None Recorded Concern Status LastModified by Organization Details LastModified Time None Recorded Advance Directives Directive None Recorded Payers Insurance Date Sequence Insurance Name Policy Number Policy Fay Covered Member ID Fay Member ID Guarantor Name 11/24/[address] [place] [address] [id number] Tyesha Moya [id number] Tyesha Moya Notes Date Note Type Note [...] have similar symptoms. Eden Awad [facility] [address] [facility], [place], [address], [place] - [facility] 11/25/2022 10:08:43 OBGyn Episode No OBEpisode recorded.
== END 2025-01-20 11:10 | disposition home or self-care (01) ==
LOC: HO.HMCC 09:30
PROVIDERS: PCP Internal Medicine; Visit Provider Internal Medicine
DX: F33.1 Major depressive disorder, recurrent, moderate (principal); F41.1 Generalized anxiety disorder